=== PATIENT | male | born 1945 | race Caucasian/White ===

== ENCOUNTER 2016-10-21 12:22 | Inpatient (IN) | payer OTHER ==
[~2016-10-21] VITALS: Ht 170.2 cm; Wt 66.5 kg
[~2016-10-21 12:22] MED LIST: ASPI81TA82 PO; BACL20TA PO; GABA300C3 PO; KETO1SOL3 EACH EYE; LEVO88TA2 PO; OMNI1SUS EACH EYE; PROT40TA PO; VITA400D PO; ZOCO40TA PO
[2016-10-21 12:35] VITALS: BP 139/78; PULSE 99; RESP 18; TEMP 98.6; O2SAT 94
[2016-10-21 12:41] VITALS: O2SAT 94
[2016-10-21] MEDS ORDERED: SODIUM CHLORID 0.9% 500 ML INJ 500 ML IV ONE (12:45)
[2016-10-21] MEDS ORDERED: SODIUM CHLORIDE 0.9% FLUSH 10 ML FLUSH IVF PRN (12:45)
[2016-10-21 12:58] LABS: AUTOMATED NEUTROPHIL # 16.3 TH/MM3 (1.8-7.7); BASOPHIL # 0.3 TH/MM3 (0-0.2); BASOPHIL % 0.9 % (0.0-2.0); EOSINOPHIL # 0.2 TH/MM3 (0-0.4); EOSINOPHIL % 0.6 % (0.0-4.0); HEMATOCRIT 32.5 % (39.0-51.0); LYMPH % 6.9 % (9.0-44.0); MEAN CORPUSCULAR HEMOGLOBIN 28.6 PG (27.0-34.0); MEAN CORPUSCULAR HGB CONC 34.1 % (32.0-36.0); MONO % 35.5 % (0.0-8.0); NEUT % 56.1 % (16.0-70.0); PLATELET COUNT 370 TH/MM3 (150-450); RED BLOOD COUNT 3.87 MIL/MM3 (4.50-5.90); RED CELL DISTRIBUTION WIDTH 15.8 % (11.6-17.2)
--- NOTE | 2016-10-21 12:59 | PD ---
HPI Chief Complaint: Chest Pain Time Seen by Provider: 12:25 Travel History International Travel<30 days: No Contact w/Intl Traveler<30days: No Traveled to known affect area: No History of Present Illness HPI This 71-year-old man who presents to the emergency department referred from the [place] for chest pain. Patient started getting left sided pleuritic chest pain about a week or so ago. He had a routine echocardiogram scheduled to follow-up on a heart murmur that he had. He states since that time she's been having this pain. States it comes and goes, is worse with lying flat, worse with coughing or burping, worse with certain arm movements, worse with palpation. He scheduled an appointment for further evaluation at the [facility] today. When he went in the did an EKG which they felt showed some minor EKG changes and is referred to the emergency department. He has no shortness of breath. No diaphoresis. Symptoms are not worse with exertion. He's been eating and drinking normally. He has a history of peptic ulcer disease and hiatal hernia, but states he's been taking his medications has not had any indigestion problems or reflux symptoms. He does not have any history of CAD. He had a stress test part of back surgery 15 years ago, no other cardiac evaluation in the past. No other complaints. History Past Medical History Narrative Medical Peptic ulcer disease, hiatal hernia Borderline diabetes Hypothyroidism Hypertension Low vitamin D Social History Alcohol Use: Yes (OCCASIONALLY) Tobacco Use: No Allergies-Medications (Allergen,Severity, Reaction): Coded Allergies: No Known Allergies (Unverified , 10/21/16) Reported Meds & Prescriptions Reported Meds & Active Scripts Active Protonix (Pantoprazole Sodium) 40 Mg Tabdr 40 Mg PO DAILY 30 Days Reported Aspir-81 (Aspirin) 81 Mg Tab 81 Mg PO DAILY Acular (Ketorolac Tromethamine) 5 Ml Soln 1 Drop EACH EYE QID Prednisolone Acetate 1 % Johanna 1 Drop EACH EYE BID Gabapentin 300 Mg Cap 300 Mg PO TID Lioresal 20 Mg Tab (Baclofen) 20 Mg Tab 20 Mg PO BID Levothyroxine 88 mcg (Levothyroxine Sodium) 88 Mcg Tab 1 Tab PO DAILY Vitamin D (Cholecalciferol) 400 Unit Sal 0 PO DAILY UNKNOWN DOSE Zocor 40 mg (Simvastatin) 40 Mg Tab 1 Tab PO HS Review of Systems Except as stated in HPI: all other systems reviewed are Neg Physical Exam Narrative GENERAL: Well-appearing 71-year-old man, no acute distress. SKIN: Focused skin assessment warm/dry. NECK: Trachea midline. No JVD. CARDIOVASCULAR: Regular rate and rhythm. Soft systolic murmur rating into the apex. RESPIRATORY: No accessory muscle use. Clear to auscultation. Breath sounds equal bilaterally. GASTROINTESTINAL: Abdomen soft, non-tender, nondistended. Hepatic and splenic margins not palpable. MUSCULOSKELETAL: No obvious deformities. No edema. NEUROLOGICAL: Awake and alert. No obvious cranial nerve deficits. Motor grossly within normal limits. Normal speech. Data Data Last Documented VS Vital Signs Date Time Temp Pulse Resp B/P Pulse Ox O2 Delivery O2 Flow Rate FiO2 10/21/16 12:41 94 Room Air 10/21/16 12:37 94 18 10/21/16 12:35 98.6 139/78 Orders Electrocardiogram (10/21/16 12:39) Complete Blood Count With Diff (10/21/16 12:39) Comprehensive Metabolic Panel (10/21/16 12:39) D-Dimer (10/21/16 12:39) Magnesium (Mg) (10/21/16 12:39) Prothrombin Time / Inr (Pt) (10/21/16 12:39) Act Partial Throm Time (Ptt) (10/21/16 12:39) Troponin I (10/21/16 12:39) Lipase (10/21/16 12:39) Ecg Monitoring (10/21/16 12:39) Iv Access Insert/Monitor (10/21/16 12:39) Oximetry (10/21/16 12:39) Oxygen Administration (10/21/16 12:39) Sodium Chloride 0.9% Flush (Ns Flush) (10/21/16 12:45) Sodium Chlorid 0.9% 500 Ml Inj (Ns 500 M (10/21/16 12:45) Chest, Pa & Lat (10/21/16 12:39) Ct Thorax/ Chest W Iv Contrast (10/21/16 ) Ct Abd/Pel W Iv Contrast(Rout) (10/21/16 ) Iohexol 350 Inj (Omnipaque 350 Inj) (10/21/16 14:20) Labs Laboratory Tests Test 10/21/16 12:43 White Blood Count 29.0 TH/MM3 Red Blood Count 3.87 MIL/MM3 Hemoglobin 11.1 GM/DL Hematocrit 32.5 % Mean Corpuscular Volume 84.0 FL Mean Corpuscular Hemoglobin 28.6 PG Mean Corpuscular Hemoglobin 34.1 % Concent Red Cell Distribution Width 15.8 % Platelet Count 370 TH/MM3 Mean Platelet Volume 8.2 FL Neutrophils (%) (Auto) 56.1 % Lymphocytes (%) (Auto) 6.9 % Monocytes (%) (Auto) 35.5 % Eosinophils (%) (Auto) 0.6 % Basophils (%) (Auto) 0.9 % Neutrophils # (Auto) 16.3 TH/MM3 Lymphocytes # (Auto) 2.0 TH/MM3 Monocytes # (Auto) 10.3 TH/MM3 Eosinophils # (Auto) 0.2 TH/MM3 Basophils # (Auto) 0.3 TH/MM3 CBC Comment AUTO DIFF Differential Comment AUTO DIFF CONFIRMED Platelet Estimate NORMAL Platelet Morphology Comment NORMAL Prothrombin Time 12.5 SEC Prothromb Time International 1.1 RATIO Ratio Activated Partial 33.1 SEC Thromboplast Time D-Dimer Quantitative (PE/DVT) 1.09 MG/L FEU Sodium Level 133 MEQ/L Potassium Level 4.4 MEQ/L Chloride Level 98 MEQ/L Carbon Dioxide Level 27.1 MEQ/L Anion Gap 8 MEQ/L Blood Urea Nitrogen 17 MG/DL Creatinine 0.86 MG/DL Estimat Glomerular Filtration 88 ML/MIN Rate Random Glucose 111 MG/DL Calcium Level 8.4 MG/DL Magnesium Level 2.1 MG/DL Total Bilirubin 0.4 MG/DL Aspartate Amino Transf 14 U/L (AST/SGOT) Alanine Aminotransferase 13 U/L (ALT/SGPT) Alkaline Phosphatase 76 U/L Troponin I LESS THAN 0.02 NG/ML Total Protein 8.0 GM/DL Albumin 3.3 GM/DL Lipase 67 U/L [facility] Medical Decision Making Medical Screen Exam Complete: Yes Emergency Medical Condition: Yes Interpretation(s) My review of EKG: Normal sinus rhythm at a rate of 96, leftward axis, possible LVH, no definite evidence of acute ischemia. Compared to previous EKG from September 23, no significant change. LABS: CBC remarkable for white count 29,000, 35% monos CMP is generally unremarkable Troponins negative Lipase is normal Coags unremarkable D-dimer 1.09 Chest x-ray: Moderate size left pleural effusion and associated consolidation of the left lower lobe. Chest CT: Large left pleural effusion and associated subsegmental areas of consolidation the left middle lower lung. Solitary large calcified subcarinal lymph node and multiple nonenlarged bilateral hilar calcified nodes. Without evidence of renal stone or ureteral stone. Several mildly prominent periaortic lymph nodes measuring up to 11 mm. Differential Diagnosis Chest wall pain, CAD, pericarditis, pleurisy, pneumonia, pneumothorax, gastritis /reflux, hiatal hernia, other Narrative Course Medical decision making INITIAL: 71-year-old man presents to the emergency department complaining of chest pain, nonexertional, positional and pleuritic, as well as reproducible suggestive of muscular skeletal etiology or less likely pericarditis. Gastritis or hiatal hernia symptoms are also possible however patient feels like his stomach really has been bothering him at all since she's been on his GI medications. ACS always possible, but less likely. We'll check initial labs , EKG, chest x-ray. I reviewed [facility], and the EKG changes that they appear to be referring to seem to be related to artifact in the baseline in V3. I don't see any significant change from his previous EKGs on the one that we performed today. FINAL: 71-year-old man left-sided chest pain. He has large left pleural effusion and some consolidation but no symptoms to suggest pneumonia. Nonsmoker. Will given. Treatment for pneumonia, admitted for drainage and further evaluation. Diagnosis Primary Impression: Pleural effusion Additional Impression: Pneumonia Admitting Information Admitting Physician Requests: Admit Vernon Frazier MD Oct 21, 2016 12:58
[2016-10-21 13:01] LABS: HEMO FLAGS AUTO DIFF
[2016-10-21 13:08] LABS: ANION GAP 8 MEQ/L (5-15); AST (GOT) 14 U/L (15-37); BICARBONATE 27.1 MEQ/L (21.0-32.0); BLOOD UREA NITROGEN 17 MG/DL (7-18); CHLORIDE 98 MEQ/L (98-107); GLOMERULAR FILTRATION RATE 88 ML/MIN (>89); MAGNESIUM 2.1 MG/DL (1.5-2.5); POTASSIUM 4.4 MEQ/L (3.5-5.1); SODIUM (NA) 133 MEQ/L (136-145)
[2016-10-21 13:09] LABS: APTT (PATIENT) 33.1 SEC (24.3-30.1); INTERNATIONAL NORMALIZED RATIO 1.1 RATIO; PROTHROMBIN TIME - PATIENT 12.5 SEC (9.8-11.6)
[2016-10-21 13:10] LABS: ALT (GPT) 13 U/L (12-78)
[2016-10-21 13:13] LABS: ALKALINE PHOSPHATASE 76 U/L (45-117); TOTAL BILIRUBIN ADULT 0.4 MG/DL (0.2-1.0)
[2016-10-21 13:35] LABS: PLATELET ESTIMATE SMEAR NORMAL (NORMAL); PLATELET MORPHOLOGY NORMAL (NORMAL); SCAN/DIFF AUTO DIFF CONFIRMED
--- NOTE | 2016-10-21 13:45 | RADRPT ---
EXAM DATE/TIME: 10/21/2016 13:00 [facility] COMPARISON: No previous studies available for comparison. INDICATIONS : Chest pain. MEDICAL HISTORY : None. SURGICAL HISTORY : None. ENCOUNTER: Initial ACUITY: 1 day PAIN SCORE: 10/10 LOCATION: Left chest FINDINGS: There is moderately dense opacity obscuring the left hemidiaphragm and lateral left heart border with meniscal interface suggesting a moderate-sized pleural effusion. There is also some consolidation i n the left lower lobe. The heart is normal size. The right lung is clear. Right hemidiaphragm is w ell delineated. [place] screws are present in the proximal right humerus. CONCLUSION: Moderate-sized left pleural effusion and associated consolidation left lower lobe. Jc Suarez MD on October 21, 2016 at 13:43 Board Certified Radiologist. This report was verified electronically.
[2016-10-21] MEDS ORDERED: IOHEXOL 350 MG/ML 10 ML VIAL (for RAD DIAG) IV ONE (14:20)
--- NOTE | 2016-10-21 16:00 | RADRPT ---
EXAM DATE/TIME: 10/21/2016 14:16 [facility] COMPARISON: No previous studies available for comparison. INDICATIONS : Diffuse abdomen pain for two weeks. IV CONTRAST: 70 cc Omnipaque 350 (iohexol) IV ; Cumulative dose for multiple exams. ORAL CONTRAST: No oral contrast ingested. RADIATION DOSE: 11.88 CTDIvol (mGy) ; Combined studies - Thorax/Abdomen/Pelvis MEDICAL HISTORY : Hypertension. Cardiovascular disease Diabetes mellitus type 2. SURGICAL HISTORY : None. ENCOUNTER: Initial ACUITY: 2 weeks PAIN SCALE: 3/10 LOCATION: Bilateral upper quadrant TECHNIQUE: Volumetric scanning of the abdomen and pelvis was performed. Using automated exposure control and ad justment of the mA and/or kV according to patient size, radiation dose was kept as low as reasonably achievable to obtain optimal diagnostic quality images. FINDINGS: Left pleural effusion and lower lobe consolidation. Please see CT thorax report. LIVER: Homogeneous density without lesion. There is no dilation of the biliary tree. Cholecystectomy. SPLEEN: Normal size without lesion. PANCREAS: Within normal limits. KIDNEYS: Normal in size and shape. There is no mass, stone or hydronephrosis. The left ureter is mildly dila marcelino, but no calcified stones seen. ADRENAL GLANDS: Within normal limits. VASCULAR: There is no aortic aneurysm. BOWEL/MESENTERY: No dilated loops of small or large bowel. ABDOMINAL WALL: Within normal limits. RETROPERITONEUM: There several periaortic lymph nodes which are mildly prominent and measure up to 11 mm in size. The largest is seen on image #53. BLADDER: Mildly distended. Smooth margins. No calcifications within the lumen. REPRODUCTIVE: Within normal limits. INGUINAL: Several bilateral nonenlarged inguinal lymph nodes. MUSCULOSKELETAL: Within normal limits for patient age. CONCLUSION: 1. Left pleural effusion and lower lobe consolidation. 2. Mild dilation of the left ureter without evidence of renal stone or ureteral stone. 3. Several mildly prominent para-aortic lymph nodes measuring up to 11 mm. Jc Suarez MD on October 21, 2016 at 15:54 Board Certified Radiologist. This report was verified electronically.
--- NOTE | 2016-10-21 16:04 | RADRPT ---
EXAM DATE/TIME: 10/21/2016 14:16 [facility] COMPARISON: No previous studies available for comparison. INDICATIONS : Chest pains for one week. IV CONTRAST: 70 cc Omnipaque 350 (iohexol) IV ; Cumulative dose for multiple exams. RADIATION DOSE: CTDIvol (mGy) ; Combined studies - Thorax/Abdomen/Pelvis MEDICAL HISTORY : Hypertension. Cardiovascular disease Diabetes mellitus type 2. SURGICAL HISTORY : None. ENCOUNTER: Initial ACUITY: 2 weeks PAIN SCALE: 4/10 LOCATION: Bilateral chest TECHNIQUE: Volumetric scanning of the chest was performed. Using automated exposure control and adjustment of t he mA and/or kV according to patient size, radiation dose was kept as low as reasonably achievable to obtain optimal diagnostic quality images. FINDINGS: LUNGS: The right lung is clear. There is subsegmental consolidation in the left lower lung adjacent to the pleural effusions. PLEURA: Large left pleural effusion extends from apex to base and measures up to 5 cm in thickness. No pleur al effusion on the right. MEDIASTINUM: There is a oval densely calcified right subcarinal lymph node which measures 3.0 x 1.5 cm. Nonenlarg ed bilateral hilar nodes are also present. AXILLAE: Within normal limits. No lymphadenopathy. SKELETAL: Within normal limits for patient age. MISCELLANEOUS: The visualized upper abdominal organs demonstrate no acute abnormality. CONCLUSION: 1. Large left pleural effusion and associated subsegmental areas of consolidation left mid and lower lung. 2. Solitary large calcified subcarinal lymph node and multiple nonenlarged bilateral hilar calcified nodes. Jc Suarez MD on October 21, 2016 at 15:58 Board Certified Radiologist. This report was verified electronically.
[2016-10-21 16:30] VITALS: BP 150/70; PULSE 99; RESP 18; O2SAT 94
[2016-10-21] MEDS ORDERED: AZITHROMYCIN 250 MG TAB PO ONE (16:30)
[2016-10-21] MEDS ORDERED: cefTRIAXone INJ 1,000 MG in SODIUM CHLORIDE 0.9% INJ 100 ML IV ONE (16:30)
[2016-10-21] MEDS ORDERED: ACETAMINOPHEN 325 MG TAB PO PRN (17:00)
[2016-10-21] MEDS ORDERED: MORPHINE SULFATE 4 MG/ML INJ IV PUSH PRN (17:00)
[2016-10-21] MEDS ORDERED: SODIUM CHLORIDE 0.9% FLUSH 10 ML FLUSH IV FLUSH PRN (17:00)
[2016-10-21] MEDS ORDERED: ONDANSETRON HCL 4 MG/2 ML VIAL IVP PRN (17:00)
[2016-10-21] MEDS ORDERED: BISACODYL 10 MG SUPP RECTAL PRN (17:00)
[2016-10-21] MEDS ORDERED: TEMAZEPAM 15 MG CAP PO PRN (17:00)
[2016-10-21] MEDS ORDERED: LACTULOSE SYRUP 20 GM/30 ML CUP PO PRN (17:00)
[2016-10-21] MEDS ORDERED: SENNOSIDES 8.6 MG TAB PO PRN (17:00)
[2016-10-21] MEDS ORDERED: MAGNESIUM HYDROXIDE SUSP 30 ML CUP PO PRN (17:00)
--- NOTE | 2016-10-21 17:26 | HHI.HP ---
[facility] Service [facility] Primary Care Physician [facility] Admission Diagnosis pneumonia, effusion Diagnoses: Chief Complaint: Chest pain Travel History International Travel<30 Days: No Contact w/Intl Traveler <30 Da: No Traveled to Known Affected Are: No Sepsis Criteria SIRS Criteria (2 or more): Heart rate over 90, WBC > 09670, < 4000 or > 10% bands Sepsis Criteria (SIRS+source): Infect source susp/known Criteria Outcome: Meets sepsis criteria History of Present Illness Written by Darryn Mandujano, acting as scribe for Dr. Schmitt on 10/21/16 at 17:15. This note was transcribed by ej QUINTERO. I, Dr. Tashia Schmitt personally performed the history, physical exam, and medical decision making; and confirmed the accuracy of the information in the transcribed note. Authenticated by Dr. Tashia Schmitt on 10/21/16 at 17:15. 71-year-old male with a past medical history of HLD, hypothyroidism, GERD, chronic back pain who was sent by the [facility] for chest pain. The patient states that he's been having intermittent left-sided chest pain for the past week. He states the pain is worse when he takes a deep breath or lies flat. The pain has been alleviated by sitting and nitroglycerin. He denies any radiation of the pain. He states the pain is intermediate and lasts for about 20 or 30 minutes at a time. His chest has been tender to touch. He does report orthopnea, but denies any shortness of breath. He reports occasional palpitations. He states that he always has night sweats. He states that normally he has a clear yellow cough in the morning, denies any blood in it. He denies any past history of heart disease, tobacco use, or cancer. He denies any nausea, vomiting, constipation, diarrhea, weakness, weight loss or appetite loss. Review of Systems Except as stated in HPI: all other systems reviewed are Neg Past Family Social History Past Medical History Hyperlipidemia GERD Hypothyroidism Chronic back pain Past Surgical History Shoulder surgery Lower back surgery Reported Medications Protonix (Pantoprazole Sodium) 40 Mg Tabdr 40 Mg PO DAILY 30 Days Aspir-81 (Aspirin) 81 Mg Tab 81 Mg PO DAILY Acular (Ketorolac Tromethamine) 5 Ml Soln 1 Drop EACH EYE QID Prednisolone Acetate 1 % Johanna 1 Drop EACH EYE BID Gabapentin 300 Mg Cap 300 Mg PO TID Lioresal 20 Mg Tab (Baclofen) 20 Mg Tab 20 Mg PO BID Levothyroxine 88 mcg (Levothyroxine Sodium) 88 Mcg Tab 1 Tab PO DAILY Vitamin D (Cholecalciferol) 400 Unit Sal 0 PO DAILY UNKNOWN DOSE Zocor 40 mg (Simvastatin) 40 Mg Tab 1 Tab PO HS Allergies: Coded Allergies: No Known Allergies (Unverified , 10/21/16) Active Ordered Medications Current Medications Medications (Trade) Dose Ordered Sig/Coleen Route Start Time Stop Time Status Last Admin (NS Flush) 2 ml UNSCH PRN IVF 10/21/16 12:45 (NS Flush) 2 ml UNSCH PRN IV FLUSH 10/21/16 17:00 (NS Flush) 2 ml BID IV FLUSH 10/21/16 21:00 (Tylenol) 650 mg Q4H PRN PO 10/21/16 17:00 (Zofran Inj) 4 mg Q6H PRN IVP 10/21/16 17:00 (Restoril) 15 mg HS PRN PO 10/21/16 17:00 (Heparin Inj) 5,000 units Q12H SQ 10/21/16 17:00 UNV (Gale-Colace) 1 tab BID PO 10/21/16 21:00 (Milk Of Magnesia Liq) 30 ml Q12H PRN PO 10/21/16 17:00 (Senokot) 17.2 mg Q12H PRN PO 10/21/16 17:00 (Dulcolax Supp) 10 mg DAILY PRN RECTAL 10/21/16 17:00 Lactulose 30 ml 30 ml DAILY PRN PO 10/21/16 17:00 Ceftriaxone Sodium 1000 mg/ Sodium Chloride 100 ml @ 200 mls/hr Q24H IV 10/21/16 17:00 UNV (Zithromax Inj/ NS 250 ml Inj) 250 ml @ 250 mls/hr Q24H IV 10/21/16 17:00 UNV (Paradise 5-325 Mg) 1 tab Q4H PRN PO 10/21/16 17:00 UNV (Morphine Inj) 2 mg Q4HR PRN IV PUSH 10/21/16 17:00 UNV Family History Father at age 50 of a heart attack Mother lived to 92 Brother at 72 of blood cancer Social History Never a smoker Occasional alcohol use Denies any drug use Physical Exam Vital Signs Vital Signs Date Time Temp Pulse Resp B/P Pulse Ox O2 Delivery O2 Flow Rate FiO2 10/21/16 12:41 94 Room Air 10/21/16 12:41 94 Room Air 10/21/16 12:37 94 18 93 Room Air 10/21/16 12:35 98.6 99 18 139/78 94 Physical Exam GENERAL: Well-developed well-nourished. In no acute distress. SKIN: Warm and dry. No lesions noted. HEENT: Normocephalic. Pupils equal and round. Mucous membranes pink and moist. CARDIOVASCULAR: Regular rate and rhythm. No murmur appreciated. RESPIRATORY: No accessory muscle use. Decreased breath sounds in the left lung base. GASTROINTESTINAL: Abdomen soft, non-tender, nondistended. Bowel sounds x4. MUSCULOSKELETAL: No obvious deformities. No clubbing or cyanosis. Trace edema. Left axillary/chest wall TTP. NEUROLOGICAL: Awake and alert. No focal neurological deficits. Moves upper and lower extremities spontaneously. Normal speech. PSYCHIATRIC: Appropriate mood and affect; insight and judgment normal. Laboratory Laboratory Tests Test 10/21/16 12:43 White Blood Count 29.0 Red Blood Count 3.87 Hemoglobin 11.1 Hematocrit 32.5 Mean Corpuscular Volume 84.0 Mean Corpuscular Hemoglobin 28.6 Mean Corpuscular Hemoglobin 34.1 Concent Red Cell Distribution Width 15.8 Platelet Count 370 Mean Platelet Volume 8.2 Neutrophils (%) (Auto) 56.1 Lymphocytes (%) (Auto) 6.9 Monocytes (%) (Auto) 35.5 Eosinophils (%) (Auto) 0.6 Basophils (%) (Auto) 0.9 Neutrophils # (Auto) 16.3 Lymphocytes # (Auto) 2.0 Monocytes # (Auto) 10.3 Eosinophils # (Auto) 0.2 Basophils # (Auto) 0.3 CBC Comment AUTO DIFF Differential Comment AUTO DIFF CONFIRMED Platelet Estimate NORMAL Platelet Morphology Comment NORMAL Prothrombin Time 12.5 Prothromb Time International 1.1 Ratio Activated Partial 33.1 Thromboplast Time D-Dimer Quantitative (PE/DVT) 1.09 Sodium Level 133 Potassium Level 4.4 Chloride Level 98 Carbon Dioxide Level 27.1 Anion Gap 8 Blood Urea Nitrogen 17 Creatinine 0.86 Estimat Glomerular Filtration 88 Rate Random Glucose 111 Calcium Level 8.4 Magnesium Level 2.1 Total Bilirubin 0.4 Aspartate Amino Transf 14 (AST/SGOT) Alanine Aminotransferase 13 (ALT/SGPT) Alkaline Phosphatase 76 Troponin I LESS THAN 0.02 Total Protein 8.0 Albumin 3.3 Lipase 67 Result Diagram: 10/21/16 1243 10/21/16 1243 Imaging Last Impressions Chest X-Ray 10/21/16 1239 Signed Impressions: Service Date/Time: October 13:00 - CONCLUSION: Moderate-sized left pleural effusion and associated consolidation left lower lobe. Jc Suarez MD Chest CT 10/21/16 0000 Signed Impressions: Service Date/Time: October 14:16 - CONCLUSION: 1. Large left pleural effusion and associated subsegmental areas of consolidation left mid and lower lung. 2. Solitary large calcified subcarinal lymph node and multiple nonenlarged bilateral hilar calcified nodes. Jc Suarez MD Abdomen/Pelvis CT 10/21/16 0000 Signed Impressions: Service Date/Time: October 14:16 - CONCLUSION: 1. Left pleural effusion and lower lobe consolidation. 2. Mild dilation of the left ureter without evidence of renal stone or ureteral stone. 3. Several mildly prominent para-aortic lymph nodes measuring up to 11 mm. Jc Suarez MD Assessment and Plan Assessment and Plan 71-year-old male with a past medical history of HLD, hypothyroidism, GERD, chronic back pain who [facility] Atypical chest pain: Suspect secondary to pleural effusion and possible infection Reviewed: Troponin 0.02. D-dimer 1.09. Chest CT with large left pleural effusion and no PE. -Trend cardiac enzymes -Telemetry monitoring -Treat underlying pulmonary process as below -Echocardiogram Pneumonia with sepsis: Reviewed: Chest CT with subsegmental areas of consolidation left mid and lower lung. WBC 29. Tachycardia. -Continue antibiotics with IV ceftriaxone and azithromycin -Check blood cultures Pleural effusion: Chest and abdominal CT show lymphadenopathy; will definitely need to rule out a malignant etiology. -Consult pulmonology, will likely need thoracentesis with cytology -Ultrasound chest for marking Other chronic medical conditions include hypothyroidism, GERD, chronic back pain , hyperlipidemia: Stable at this time. Reconcile and home medications as indicated. DVT prophylaxis: Heparin Discussed Condition With Patient, ED staff Darryn Mandujano Oct 21, 2016 17:26 Tashia Schmitt MD Oct 21, 2016 20:19
[2016-10-21] MEDS ORDERED: POLY99.0 EACH EYE (18:01)
[2016-10-21] MEDS ORDERED: GABA400C5 PO (18:01)
[2016-10-21] MEDS ORDERED: MICO2CRE (18:02)
[2016-10-21] MEDS ORDERED: KETO0.5S2 EACH EYE (18:02)
[2016-10-21] MEDS ORDERED: LEVO125T4 PO (18:02)
[2016-10-21] MEDS ORDERED: SIMV20TA PO (18:02)
[2016-10-21] MEDS ORDERED: [UNRECOGNIZED DRUG - CODE] (18:02)
[2016-10-21] MEDS ORDERED: OMEP40CA2 PO (18:02)
[2016-10-21] MEDS ORDERED: OMEP20TA PO (18:02)
[2016-10-21 18:34] VITALS: BP 158/68; PULSE 96; RESP 18; TEMP 99.4; O2SAT 93
[2016-10-21] MEDS: HEPARIN SODIUM - SQ 10,000 UNITS/ML VIAL SQ SCH (18:40)
[2016-10-21 18:48] LABS: CREATINE KINASE 22 U/L (39-308)
[2016-10-21 20:07] VITALS: BP 160/74; PULSE 115; RESP 16; TEMP 99.3; O2SAT 92
[2016-10-21 20:20] VITALS: PULSE 115
[2016-10-21] MEDS ORDERED: ARTIFICIAL TEARS OPTH SOLN 15 ML BTL EACH EYE PRN (20:30)
[2016-10-21] MEDS ORDERED: LEVOTHYROXINE SODIUM 125 MCG TAB PO PRN (20:30)
[2016-10-21] MEDS: SODIUM CHLORIDE 0.9% FLUSH 10 ML FLUSH IV FLUSH SCH (20:46)
[2016-10-21] MEDS: DOCUSATE SODIUM 50 MG/SENNA 8.6 MG TAB PO SCH (20:46)
[2016-10-21] MEDS: PRAVASTATIN SOD 40 MG TAB PO SCH (21:17)
[2016-10-21] MEDS: GABAPENTIN 400 MG CAP PO SCH (21:17)
--- NOTE | 2016-10-21 23:01 | RADRPT ---
EXAM DATE/TIME: 10/21/2016 22:04 [facility] COMPARISON: No previous studies available for comparison. INDICATIONS : Pleural effusion. MEDICAL HISTORY : Hypercholesterolemia. Gastroesophageal reflux disease. Hypothyroidism. Hypertension. Diabetes. Blood transfusion. SURGICAL HISTORY : Cholecystectomy. Hernia repair. Lumbar fusion. Right shoulder surgery. ENCOUNTER: Initial ACUITY: 1 day PAIN SCORE: 3/10 LOCATION: Left chest MEASUREMENTS: SKIN TO PARIETAL PLEURA: 1.9 cm SKIN TO MAX SAFE DEPTH: 4.1 cm ESTIMATED FLUID VOLUME: 775 cc FLUID COMPOSITION: simple FINDINGS: Pleural effusion as above. A etelvina was placed on the skin surface superficial to the pleural fluid col lection. CONCLUSION: Moderate left pleural effusion marked for bedside thoracentesis Andrea Evans MD on October 21, 2016 at 22:59 Board Certified Radiologist. This report was verified electronically.
[2016-10-22] VITALS (10 sets, daily range): BP systolic 124–150; BP diastolic 63–72; PULSE 93–108; RESP 16–20; TEMP 98.9–99.5; O2SAT 91–96
[2016-10-22 01:49] LABS: CREATINE KINASE 16 U/L (39-308)
[2016-10-22] MEDS: PANTOPRAZOLE SOD 40 MG DELAYED RELEASE TAB PO SCH (06:40)
[2016-10-22] MEDS: HEPARIN SODIUM - SQ 10,000 UNITS/ML VIAL SQ SCH (06:40)
[2016-10-22 08:50] LABS: ANION GAP 8 MEQ/L (5-15); AST (GOT) 12 U/L (15-37); BICARBONATE 26.2 MEQ/L (21.0-32.0); BLOOD UREA NITROGEN 15 MG/DL (7-18); CHLORIDE 98 MEQ/L (98-107); GLOMERULAR FILTRATION RATE 93 ML/MIN (>89); POTASSIUM 3.9 MEQ/L (3.5-5.1); SODIUM (NA) 132 MEQ/L (136-145)
[2016-10-22 08:52] LABS: ALT (GPT) 12 U/L (12-78)
[2016-10-22 08:54] LABS: ALKALINE PHOSPHATASE 64 U/L (45-117); TOTAL BILIRUBIN ADULT 0.6 MG/DL (0.2-1.0)
[2016-10-22] MEDS: DOCUSATE SODIUM 50 MG/SENNA 8.6 MG TAB PO SCH ×2 (09:00→20:13)
[2016-10-22] MEDS: GABAPENTIN 400 MG CAP PO SCH ×3 (09:00→17:29)
[2016-10-22] MEDS ORDERED: PANTOPRAZOLE SOD 20 MG DELAYED RELEASE TAB PO SCH (09:00)
[2016-10-22] MEDS ORDERED: GABAPENTIN 400 MG CAP PO SCH (09:00)
[2016-10-22] MEDS: SODIUM CHLORIDE 0.9% FLUSH 10 ML FLUSH IV FLUSH SCH ×2 (09:02→20:14)
[2016-10-22] MEDS: metroNIDAZOLE 500 MG INJ 100 ML IV SCH ×2 (09:30→17:29)
--- NOTE | 2016-10-22 09:44 | HHI.PR ---
Subjective Remarks Some sob. Says has chest paoin only with deep inspiration. No fever or chills. No n/v/d/c. Eating well. Family at bedside. Objective Vitals Vital Signs Date Time Temp Pulse Resp B/P Pulse Ox O2 Delivery O2 Flow Rate FiO2 10/22/16 08:00 99.2 96 20 142/68 91 10/22/16 04:00 99.4 100 20 133/65 93 10/22/16 00:00 99.5 108 20 124/63 93 10/21/16 20:51 Room Air 10/21/16 20:20 115 10/21/16 20:07 99.3 115 16 160/74 92 10/21/16 18:34 99.4 96 18 158/68 93 10/21/16 16:30 99 18 150/70 94 Room Air 10/21/16 12:41 94 Room Air 10/21/16 12:41 94 Room Air 10/21/16 12:37 94 18 93 Room Air 10/21/16 12:35 98.6 99 18 139/78 94 I/O 10/21/16 10/21/16 10/21/16 10/22/16 10/22/16 10/22/16 07:00 15:00 23:00 07:00 15:00 23:00 Intake Total 220 ml Balance 220 ml Intake Oral 220 ml # Voids 1 # Bowel Movements 0 Result Diagram: 10/21/16 1243 10/22/16 0754 Imaging Last Impressions Chest X-Ray 10/21/16 1239 Signed Impressions: Service Date/Time: October 13:00 - CONCLUSION: Moderate-sized left pleural effusion and associated consolidation left lower lobe. Jc Suarez MD Chest Ultrasound 10/21/16 0000 Signed Impressions: Service Date/Time: October 22:04 - CONCLUSION: Moderate left pleural effusion marked for bedside thoracentesis Andrea Evans MD Chest CT 10/21/16 0000 Signed Impressions: Service Date/Time: October 14:16 - CONCLUSION: 1. Large left pleural effusion and associated subsegmental areas of consolidation left mid and lower lung. 2. Solitary large calcified subcarinal lymph node and multiple nonenlarged bilateral hilar calcified nodes. Jc Suarez MD Abdomen/Pelvis CT 10/21/16 0000 Signed Impressions: Service Date/Time: October 14:16 - CONCLUSION: 1. Left pleural effusion and lower lobe consolidation. 2. Mild dilation of the left ureter without evidence of renal stone or ureteral stone. 3. Several mildly prominent para-aortic lymph nodes measuring up to 11 mm. Jc Suarez MD Objective Remarks GENERAL: Well-developed well-nourished. In no acute distress. SKIN: Warm and dry. No lesions noted. HEENT: Normocephalic. Pupils equal and round. Mucous membranes pink and moist. CARDIOVASCULAR: Regular rate and rhythm. No murmur appreciated. RESPIRATORY: No accessory muscle use. Decreased breath sounds in the left lung base. GASTROINTESTINAL: Abdomen soft, non-tender, nondistended. Bowel sounds x4. MUSCULOSKELETAL: No obvious deformities. No clubbing or cyanosis. Trace edema. Left axillary/chest wall TTP. NEUROLOGICAL: Awake and alert. No focal neurological deficits. Moves upper and lower extremities spontaneously. Normal speech. PSYCHIATRIC: Appropriate mood and affect; insight and judgment normal. A/P Assessment and Plan 71-year-old male with a past medical history of HLD, hypothyroidism, GERD, chronic back pain [facility] Atypical chest pain: Suspect secondary to pleural effusion and possible infection r/o malignancy Reviewed: Troponin 0.02. D-dimer 1.09. Chest CT with large left pleural effusion and no PE. -Trend cardiac enzymes -Telemetry monitoring -Treat underlying pulmonary process as below -Echocardiogram Pneumonia with sepsis: Reviewed: Chest CT with subsegmental areas of consolidation left mid and lower lung. WBC 29. Tachycardia. -Continue antibiotics with IV ceftriaxone and azithromycin -Check blood cultures Pleural effusion. Chest and abdominal CT reviewed findings discussed with ED physician show lymphadenopathy; will definitely need to rule out a malignant etiology. -Consult pulmonology, will likely need thoracentesis with cytology -Ultrasound chest for marking reviewed reveals moderate pleural effusion. Seen by Dr Hanna gallegos. Plan for Thoracentesis diagnostic and therapeutic. Other chronic medical conditions include hypothyroidism, GERD, chronic back pain , hyperlipidemia: Stable at this time. Reconcile and home medications as indicated. DVT prophylaxis: Heparin Discussed Condition With Patient, nurse , family - KeshiaYoanTashia MD Oct 22, 2016 09:44
--- NOTE | 2016-10-22 09:44 | MB ---
cc: Ismael GOODSON M.D. DATE OF CONSULTATION: 10/22/2016 REASON FOR CONSULTATION: Mr. Padgett is a 71-year-old white male with no significant prior pulmonary history, he presented with about a week history of less left-sided chest discomfort. He was seen at the [facility] yesterday and referred to the emergency room and chest x-ray revealed a left pleural effusion. He had a CT scan then, which revealed a large left pleural effusion with some subsegmental consolidation as well. He had a large calcified lymph node. He had a low grade temperature of 99-100, his white count was elevated to 2900. He has a daily morning cough that he has had for years that really has not changed. He has had no purulent sputum or fever, although he does say he has intermittent night sweats. He has had no hemoptysis. No prior history of thromboembolic disease and he has had no significant recent travel. No swelling in the legs. He does have a history of significant reflux disease actually had surgery in 2007. I believe it was in [place] where hiatal hernia was corrected it sounds like he may have had a sleeve procedure. Since that time he had no symptoms until about 2 years ago when he presented with abdominal pain. He had a peptic ulcer. He has been on Protonix since then and denies that he is having reflux symptoms at the present time. PAST MEDICAL HISTORY: Past medical history reflux as noted hypothyroidism lumbosacral degenerative arthritis with pain. He has had a previous shoulder surgery in the lower back surgery antireflux procedure noted above. No prior significant cardiovascular history. MEDICATIONS: 1. Regular medications Protonix 2. 81 mg aspirin. 3. Gabapentin 4. . 5. Thyroid FAMILY HISTORY: Brother of a blood cancer, he has a sister who has had breast cancer. She is a twin. Two daughters and a son in good health. Father of heart disease in his 50s. Mother natural causes at 92. SOCIAL HISTORY living with his . She does smoke. She smoked all of their adult life for 46 years. He drinks two beers a week. He is a retired senior maintenance machinist and truck spotter. Not aware of previous asbestos exposure. REVIEW OF SYSTEMS Review of systems other than that noted above he has had no nausea, vomiting, no abdominal pain. When this initially came on though he did have some left shoulder discomfort. No change in bowel habits. No swelling in his legs. No sudden shortness of breath in fact he has no shortness of breath. PHYSICAL EXAMINATION VITAL SIGNS: 99 degrees, pulse 100, respirations 18, blood pressure is 130/60 and his Pulse oximetry on room air is 93% HEAD, EYES, EARS, NOSE, AND THROAT: sclerae anicteric. Pharynx is clear. NECK: Neck veins are flat. No adenopathy in the neck, supraclavicular region. LUNGS: The breath sounds are diminished at the left base with dullness to percussion and bronchial breath sounds above that area. The right lung is clear. No wheezes. HEART: Regular rhythm. Soft systolic murmur. No audible S3. ABDOMEN: No abdominal discomfort or rebound. No left upper quadrant pain. EXTREMITIES: No peripheral edema, calf tenderness or cyanosis. LABORATORY FINDINGS: Coag profile is normal. Sodium is 133. Liver functions are not elevated. Albumin is 3.3, BUN and creatinine are normal. DISCUSSION Mr. Padgett presents with discomfort in the left chest for roughly 1 week now a large left pleural effusion. Very few symptoms of pneumonia but a marked elevation in his white count. The other thing concern would be the surgery that he had in the past and then the peptic ulcer disease with what he is sort of describes as an esophageal tear, although he did not need surgery at that time and whether or not any of this is broken down and cause the problem should also be in the differential. He has been started on Rocephin and Zithromax. I am going to add Flagyl. Have radiology drain this fluid and analyze it including cultures and cytology. Follow up CT scan after the drainage procedure to get a better look at the left upper quadrant and left lower lobe area. Further diagnostic and/or therapeutic intervention will depend on his ongoing clinical course. R. MD MARVIN Cavazos/dev /8:46 AM /9:14 AM
[2016-10-22] MEDS: KETOROLAC TROMETHAMINE 0.5% OPHT SOLN 5 ML BTL EACH EYE SCH ×3 (13:00→20:17)
--- NOTE | 2016-10-22 16:06 | RADRPT ---
EXAM DATE/TIME: 10/22/2016 15:31 [facility] COMPARISON: No previous studies available for comparison. INDICATIONS : Post left thoracentesis MEDICAL HISTORY : Hypercholesterolemia. Gastroesophageal reflux disease. Hypothyroidism. Hypertension. Diabetes. Blood transfusion SURGICAL HISTORY : Cholecystectomy. Hernia repair. Lumbar fusion. Right shoulder surgery ENCOUNTER: Initial ACUITY: 1 day PAIN SCORE: 3/10 LOCATION: Left chest FINDINGS: Consolidative changes persist on the left without pneumothorax. The right lung is clear. Heart and pulmonary vascularity are normal. CONCLUSION: Consolidative changes left base otherwise negative. Andrea Ortega MD FACR on October 22, 2016 at 16:02 Board Certified Radiologist. This report was verified electronically.
--- NOTE | 2016-10-22 16:20 | RADRPT ---
EXAM DATE/TIME: 10/22/2016 14:54 [facility] COMPARISON: No previous studies available for comparison. INDICATIONS : Left pleural effusion. MEDICAL HISTORY : Hypothyroidism. Hypercholesterolemia. HTN. GERD. Borderline diabetes. SURGICAL HISTORY : Cholecystectomy Sliding esophageal hernia. Fusion lower back. Right shoulder. Blood transfusions. ENCOUNTER: Initial ACUITY: 1 day PAIN SCORE: 2/10 LOCATION: Left chest FLUID: Total volume of 300 cc of clear, yellow fluid was removed. Fluid was sent to lab for ordered studies. TECHNIQUE: 1. Ultrasound guidance for thoracentesis. 2. Thoracentesis. The risks, benefits, and alternatives to ultrasound guided thoracentesis were explained to the patien t in lay simple terms, including the risk of bleeding and infection. Written and verbal informed con sent was obtained. Appropriate area for thoracentesis was marked under ultrasound guidance with the patient in the uprig ht position. Overlying skin was prepped and draped in the usual sterile fashion and with local anest hetic, a dermatotomy was made with an 11 blade scalpel. A 6 Romanian thoracentesis catheter was placed in the pleural space and fluid was removed. Catheter was then removed and a sterile dressing applie d. There were no immediate complications. The patient tolerated the procedure well and the left the ultrasound suite in stable condition. Chest radiograph is to be obtained. CONCLUSION: Uncomplicated ultrasound guided thoracentesis. Bart Moraes MD on October 22, 2016 at 16:18 Board Certified Radiologist. This report was verified electronically.
[2016-10-22 17:06] LABS: PLEURAL FLUID LYMPHS 11 %
[2016-10-22] MEDS: ACETAMINOPHEN/HYDROcodone 325 MG/5 MG TAB PO PRN ×2 (17:24→22:21)
[2016-10-22] MEDS: AZITHROMYCIN INJ 500 MG in SODIUM CHLOR 0.9% 250 ML INJ 250 ML IV SCH (17:28)
[2016-10-22] MEDS: cefTRIAXone INJ 1,000 MG in SODIUM CHLORIDE 0.9% INJ 100 ML IV SCH (17:28)
--- NOTE | 2016-10-22 17:36 | EKG ---
Date Performed: 10/21/2016 Time Performed: 22:30:55 PTAGE: 71 years EKG: SINUS TACHYCARDIA MINIMAL VOLTAGE CRITERIA FOR LVH, CONSIDER NORMAL VARIANT NONSPECIFIC T-W AVE ABNORMALITY ABNORMAL RHYTHM ECG PREVIOUS TRACING : 10/21/2016 17.45 Compared to prior tracing no significant change DOCTOR: Moriah Cardenas Interpretating Date/Time 10/22/2016 17:35:00
--- NOTE | 2016-10-22 17:44 | RADRPT ---
EXAM DATE/TIME: 10/22/2016 16:21 [facility] COMPARISON: US GUIDED THORACENTESIS LEFT, October 22, 2016, 14:54. INDICATIONS : Evaluate Pleural Effusion and post Thorancentesis. RADIATION DOSE: 4.50 CTDIvol (mGy) MEDICAL HISTORY : Hypertension. Diabetes mellitus type 2. Hernia SURGICAL HISTORY : Cholecystectomy. Hemorrhoidectomy. ENCOUNTER: Initial ACUITY: 1 day PAIN SCALE: 2/10 LOCATION: chest TECHNIQUE: Volumetric scanning of the chest was performed. Using automated exposure control and adjustment of t he mA and/or kV according to patient size, radiation dose was kept as low as reasonably achievable to obtain optimal diagnostic quality images. FINDINGS: LUNGS: Minimal linear scarring versus atelectasis in the right lung base. 4 mm calcified granuloma in the ri ght lung base. Slightly more prominent airspace consolidation in the left lower lobe adjacent to pleu ral effusion. PLEURAE: Slightly more prominent loculated appearing large left pleural effusion following small volume thorac entesis earlier today. Ultrasound images from study performed yesterday demonstrate relatively simple anechoic pleural fluid. The fluid however measures intermediate in density on CT exam. Previously co ntrast enhanced CT exam did not demonstrate any significant pleural-based masses. MEDIASTINUM: Redemonstration of bulky subcarinal calcified lymph nodes and small calcified right hilar nodes. AXILLAE: Subcentimeter essentially reactive lymph nodes. MUSCULOSKELETAL: Postsurgical features in the right humerus. No abnormal lytic or blastic bony lesions. MISCELLANEOUS: The visualized upper abdominal organs demonstrate no acute abnormality. CONCLUSION: 1. Slight interval progression of airspace consolidation in the left lower lobe with interval minimal progression of loculated appearing intermediate density left-sided pleural effusion. Given relativel y low volume thoracentesis earlier today, patient may benefit from chest tube placement and TPA fibri nolysis. Juan Carlos Gibson MD on October 22, 2016 at 16:27 Board Certified Radiologist. This report was verified electronically.
--- NOTE | 2016-10-22 17:47 | EKG ---
Date Performed: 10/21/2016 Time Performed: 17:45:04 PTAGE: 71 years EKG: Sinus rhythm MODERATE VOLTAGE CRITERIA FOR LVH, CONSIDER NORMAL VARIANT BORDERLINE ECG PREVIOUS TRACING : 10/21/2016 12.30 Compared to prior tracing no significant change DOCTOR: Moriah Cardenas Interpretating Date/Time 10/22/2016 17:46:23
--- NOTE | 2016-10-22 17:56 | EKG ---
Date Performed: 10/21/2016 Time Performed: 12:30:14 PTAGE: 71 years EKG: Sinus rhythm WITH OCCASIONAL SUPRAVENTRICULAR PREMATURE COMPLEXES MODERATE VOLTAGE CRITERIA FOR LVH, CONSIDER NOR MAL VARIANT NONSPECIFIC T-WAVE ABNORMALITY BORDERLINE ECG PREVIOUS TRACING : 06/21/2014 00.06 Compared to prior tracing no significant change DOCTOR: Moriah Cardenas Interpretating Date/Time 10/22/2016 17:54:27
[2016-10-22] MEDS: PRAVASTATIN SOD 40 MG TAB PO SCH (20:13)
[2016-10-23] VITALS (7 sets, daily range): BP systolic 122–140; BP diastolic 60–69; PULSE 83–106; RESP 20; TEMP 98.5–99.7; O2SAT 92–95
[2016-10-23] MEDS: metroNIDAZOLE 500 MG INJ 100 ML IV SCH ×3 (02:32→16:27)
[2016-10-23] MEDS: PANTOPRAZOLE SOD 40 MG DELAYED RELEASE TAB PO SCH (06:37)
[2016-10-23] MEDS: KETOROLAC TROMETHAMINE 0.5% OPHT SOLN 5 ML BTL EACH EYE SCH ×4 (09:00→20:59)
[2016-10-23] MEDS: GABAPENTIN 400 MG CAP PO SCH ×3 (09:11→17:37)
[2016-10-23] MEDS: DOCUSATE SODIUM 50 MG/SENNA 8.6 MG TAB PO SCH ×2 (09:11→20:58)
[2016-10-23] MEDS: SODIUM CHLORIDE 0.9% FLUSH 10 ML FLUSH IV FLUSH SCH ×2 (09:17→20:58)
[2016-10-23 09:34] LABS: BASOPHIL # 0.2 TH/MM3 (0-0.2); EOSINOPHIL # 0.2 TH/MM3 (0-0.4); EOSINOPHIL % 0.9 % (0.0-4.0); HEMATOCRIT 32.7 % (39.0-51.0); MEAN CELL VOLUME 85.1 FL (80.0-100.0); MEAN CORPUSCULAR HEMOGLOBIN 27.7 PG (27.0-34.0); MEAN CORPUSCULAR HGB CONC 32.5 % (32.0-36.0); MONO % 39.6 % (0.0-8.0); NEUT % 49.5 % (16.0-70.0); PLATELET COUNT 367 TH/MM3 (150-450); RED BLOOD COUNT 3.84 MIL/MM3 (4.50-5.90); RED CELL DISTRIBUTION WIDTH 16.1 % (11.6-17.2); WHITE BLOOD COUNT 22.2 TH/MM3 (4.0-11.0)
[2016-10-23 09:57] LABS: HEMO FLAGS AUTO DIFF
[2016-10-23 11:04] LABS: BANDS 3 % (0-6); BASOPHILS 1 % (0-2); EOSINOPHILS 2 % (0-4); MYELOCYTES 1 % (0-0); NEUTROPHIL # MANUAL DIFF 12.7 TH/MM3 (1.8-7.7); PLATELET ESTIMATE SMEAR NORMAL (NORMAL); PLATELET MORPHOLOGY NORMAL (NORMAL); POLYS (SEG NEUTROPHILS) 53 % (16-70); TOXIC GRANULATION 1+ (NORMAL); WBC DIFF SAMPLE 100
[2016-10-23 11:05] LABS: SCAN/DIFF FINAL DIFF MANUAL
--- NOTE | 2016-10-23 11:06 | HHI.PR ---
Subjective Remarks The patient is status she still has significant pain in his left lower lateral chest especially with breathing. Patient denies any fever or chills. Less breath. Says he is not coughing much. Production. No night sweats. Objective Vitals Vital Signs Date Time Temp Pulse Resp B/P Pulse Ox O2 Delivery O2 Flow Rate FiO2 10/23/16 08:00 99.2 90 20 134/65 92 10/23/16 08:00 83 10/23/16 08:00 98 Room Air 10/23/16 04:00 98.8 88 20 122/62 93 10/23/16 00:00 99.3 95 20 123/60 92 10/22/16 20:26 Room Air 10/22/16 20:00 99.4 10/22/16 20:00 106 10/22/16 20:00 99.4 101 20 92 10/22/16 16:05 95 16 132/67 96 10/22/16 16:00 99.1 96 20 149/70 95 10/22/16 15:50 94 16 130/67 94 10/22/16 15:35 96 18 135/65 94 10/22/16 15:29 99.1 93 16 150/72 93 10/22/16 12:00 98.9 94 20 141/64 94 I/O 10/22/16 10/22/16 10/22/16 10/23/16 10/23/16 10/23/16 07:00 15:00 23:00 07:00 15:00 23:00 Intake Total 240 ml 280 ml 220 ml Output Total 350 ml 400 ml Balance 240 ml -70 ml -180 ml Intake Oral 240 ml 280 ml 220 ml Output Urine Total 350 ml 400 ml # Voids 6 # Bowel Movements 1 0 0 Result Diagram: 10/23/16 0713 10/22/16 0754 Imaging Last Impressions Thoracentesis Ultrasound 10/22/16 0000 Signed Impressions: Service Date/Time: Saturday, October 22, 2016 14:54 - CONCLUSION: Uncomplicated ultrasound guided thoracentesis. Bart Moraes MD Chest X-Ray 10/22/16 0000 Signed Impressions: Service Date/Time: Saturday, October 22, 2016 15:31 - CONCLUSION: Consolidative changes left base otherwise negative. Andrea Ortega MD FACR Chest CT 10/22/16 0000 Signed Impressions: Service Date/Time: Saturday, October 22, 2016 16:21 - CONCLUSION: 1. Slight interval progression of airspace consolidation in the left lower lobe with interval minimal progression of loculated appearing intermediate density left-sided pleural effusion. Given relatively low volume thoracentesis earlier today, patient may benefit from chest tube placement and TPA fibrinolysis. Juan Carlos Gibson MD Chest Ultrasound 10/21/16 0000 Signed Impressions: Service Date/Time: October 22:04 - CONCLUSION: Moderate left pleural effusion marked for bedside thoracentesis Andrea Evans MD Abdomen/Pelvis CT 10/21/16 0000 Signed Impressions: Service Date/Time: October 14:16 - CONCLUSION: 1. Left pleural effusion and lower lobe consolidation. 2. Mild dilation of the left ureter without evidence of renal stone or ureteral stone. 3. Several mildly prominent para-aortic lymph nodes measuring up to 11 mm. Jc Suarez MD Objective Remarks GENERAL: Well-developed well-nourished. In no acute distress. SKIN: Warm and dry. No lesions noted. HEENT: Normocephalic. Pupils equal and round. Mucous membranes pink and moist. CARDIOVASCULAR: Regular rate and rhythm. No murmur appreciated. RESPIRATORY: No accessory muscle use. Decreased breath sounds in the left lung base. GASTROINTESTINAL: Abdomen soft, non-tender, nondistended. Bowel sounds x4. MUSCULOSKELETAL: No obvious deformities. No clubbing or cyanosis. Trace edema. Left axillary/chest wall TTP. NEUROLOGICAL: Awake and alert. No focal neurological deficits. Moves upper and lower extremities spontaneously. Normal speech. PSYCHIATRIC: Appropriate mood and affect; insight and judgment normal. A/P Assessment and Plan 71-year-old male with a past medical history of HLD, hypothyroidism, GERD, chronic back pain who [facility] Atypical chest pain: Suspect secondary to pleural effusion and possible infection appearing loculated, also r/o malignancy Reviewed: Troponin 0.02. D-dimer 1.09. Chest CT with large left pleural effusion and no PE. -Trend cardiac enzymes neg -Telemetry monitoring -Treat underlying pulmonary process as below -Echocardiogram pending Repeat CT chest after thoracentesis reviewed Minimal interval progression of airspace consolidation in the left lower lobe with interval minimal progression of loculated appearing intermediate density left-sided pleural effusion. Patient may benefit from chest tube placement and TPA fibrinolysis. Pneumonia with sepsis: Reviewed: Chest CT with subsegmental areas of consolidation left mid and lower lung. WBC 29 on admission, improving.. Tachycardia. Sepsis resoling with abx -Continue antibiotics with IV ceftriaxone and azithromycin -Check blood cultures Pleural effusion, moderate. Chest and abdominal CT reviewed findings discussed with ED physician show lymphadenopathy; will definitely need to rule out a malignant etiology. -Consult pulmonology. -Had Ultrasound chest for marking, reviewed reveals moderate pleural effusion. Seen by Dr Ferreira pultruong. S/P Thoracentesis diagnostic and therapeutic. Repeat CT after thoracentesis with persistent loculated left lobe effusion, may need chest tube with TPA. Pulm following. Other chronic medical conditions include hypothyroidism, GERD, chronic back pain , hyperlipidemia: Stable at this time. Reconcile and home medications as indicated. DVT prophylaxis: Heparin Discussed Condition With Patient, nurse , family - Tashia Schmitt MD Oct 23, 2016 11:06
[2016-10-23] MEDS: ACETAMINOPHEN/HYDROcodone 325 MG/5 MG TAB PO PRN (12:39)
[2016-10-23] MEDS: cefTRIAXone INJ 1,000 MG in SODIUM CHLORIDE 0.9% INJ 100 ML IV SCH (17:38)
[2016-10-23] MEDS: AZITHROMYCIN INJ 500 MG in SODIUM CHLOR 0.9% 250 ML INJ 250 ML IV SCH (18:25)
[2016-10-23] MEDS: PRAVASTATIN SOD 40 MG TAB PO SCH (20:57)
[2016-10-24] VITALS (8 sets, daily range): BP systolic 132–168; BP diastolic 66–76; PULSE 78–101; RESP 18–20; TEMP 97.6–99; O2SAT 93–95
[2016-10-24] MEDS: metroNIDAZOLE 500 MG INJ 100 ML IV SCH ×3 (00:39→16:43)
[2016-10-24] MEDS: PANTOPRAZOLE SOD 40 MG DELAYED RELEASE TAB PO SCH (06:23)
[2016-10-24] MEDS: DOCUSATE SODIUM 50 MG/SENNA 8.6 MG TAB PO SCH ×2 (09:00→19:39)
[2016-10-24] MEDS: KETOROLAC TROMETHAMINE 0.5% OPHT SOLN 5 ML BTL EACH EYE SCH ×4 (09:00→19:39)
[2016-10-24] MEDS: GABAPENTIN 400 MG CAP PO SCH ×3 (09:16→17:55)
[2016-10-24] MEDS: SODIUM CHLORIDE 0.9% FLUSH 10 ML FLUSH IV FLUSH SCH ×2 (09:17→19:39)
--- NOTE | 2016-10-24 16:41 | HHI.PR ---
Subjective Remarks Resting in bed no fever or chills no chest pain Plan for CT with TPA for a loculated pleural effusion Objective Vitals Vital Signs Date Time Temp Pulse Resp B/P Pulse Ox O2 Delivery O2 Flow Rate FiO2 10/24/16 12:00 98.4 95 20 151/71 94 10/24/16 08:00 98.8 92 20 141/71 94 10/24/16 04:00 98.3 95 20 132/71 94 10/24/16 00:00 Room Air 10/24/16 00:00 97.6 97 20 168/76 95 10/23/16 20:02 106 10/23/16 20:00 Room Air 10/23/16 20:00 99.7 105 20 131/69 95 I/O 10/23/16 10/23/16 10/23/16 10/24/16 10/24/16 10/24/16 07:00 15:00 23:00 07:00 15:00 23:00 Intake Total 220 ml 720 ml 240 ml 240 ml Output Total 400 ml 1 ml Balance -180 ml 720 ml 239 ml 240 ml Intake Oral 220 ml 720 ml 240 ml 240 ml Output Urine Total 400 ml 1 ml # Voids 7 2 # Bowel Movements 0 3 Result Diagram: 10/23/16 0713 10/22/16 0754 Objective Remarks - - GENERAL: This is a well-nourished, well-developed patient, in no apparent distress. SKIN: No rashes, warm and dry HEAD: Atraumatic. Normocephalic. EYES: Pupils equal round and reactive. Extraocular motions intact. No scleral icterus. ENT: Nose without bleeding, or drainage, Airway patent. NECK: Trachea midline. Supple CARDIOVASCULAR: Regular rate and 2/6 systolic murmur RESPIRATORY: Decrease breath sounds on the left base GASTROINTESTINAL: Abdomen soft, non-tender, nondistended. Positive bowel sounds MUSCULOSKELETAL: Extremities without clubbing, cyanosis, or edema. Pedal pulses appreciated NEUROLOGICAL: Awake and alert. Moves all extremity. Normal speech.no focal neurological deficit A/P Assessment and Plan 10/24: Patient in bed resting fairly comfortably, Mild chest discomfort no fever or chills, Blood pressure still not optimal will add Norvasc 12.5 mg daily Imaging revealed loculated pleural effusion plan for CT with TPA A/P: 71-year-old male with a past medical history of HLD, hypothyroidism, GERD, chronic back pain who [facility] Atypical chest pain: Suspect secondary to pleural effusion and possible infection r/o malignancy Reviewed: Troponin 0.02. D-dimer 1.09. Chest CT with large left pleural effusion and no PE. -Trend cardiac enzymes -Telemetry monitoring -Treat underlying pulmonary process as below -Echocardiogram Pneumonia with sepsis: Reviewed: Chest CT with subsegmental areas of consolidation left mid and lower lung. . Tachycardia. -Continue antibiotics with IV ceftriaxone and azithromycin Follow blood cultures Pleural effusion. Chest and abdominal CT reviewed findings discussed with ED physician show lymphadenopathy; will definitely need to rule out a malignant etiology. -Consult pulmonology, will likely need thoracentesis with cytology -Ultrasound chest for marking reviewed reveals moderate pleural effusion. Seen by Dr Hanna gallegos. Plan for Thoracentesis diagnostic and therapeutic. Other chronic medical conditions include hypothyroidism, GERD, chronic back pain , hyperlipidemia: Stable at this time. Reconcile and home medications as indicated. DVT prophylaxis: Heparin Artem Gomez MD Oct 24, 2016 16:41
[2016-10-24] MEDS ORDERED: PILL SPLITTER OTHER PRN (17:00)
[2016-10-24] MEDS: cefTRIAXone INJ 1,000 MG in SODIUM CHLORIDE 0.9% INJ 100 ML IV SCH (17:55)
[2016-10-24] MEDS: amLODIPine BESYLATE 5 MG TAB PO SCH (17:55)
[2016-10-24] MEDS: AZITHROMYCIN INJ 500 MG in SODIUM CHLOR 0.9% 250 ML INJ 250 ML IV SCH (18:00)
[2016-10-24] MEDS: ACETAMINOPHEN/HYDROcodone 325 MG/5 MG TAB PO PRN (19:38)
[2016-10-24] MEDS: PRAVASTATIN SOD 40 MG TAB PO SCH (19:38)
[2016-10-24] MEDS ORDERED: MORPHINE SULFATE 4 MG/ML INJ IV PUSH PRN (20:15)
[2016-10-24 21:30] LABS: ANION GAP 10 MEQ/L (5-15); BICARBONATE 23.4 MEQ/L (21.0-32.0); BLOOD UREA NITROGEN 11 MG/DL (7-18); CHLORIDE 100 MEQ/L (98-107); GLOMERULAR FILTRATION RATE 91 ML/MIN (>89); MAGNESIUM 1.9 MG/DL (1.5-2.5); POTASSIUM 3.8 MEQ/L (3.5-5.1); SODIUM (NA) 133 MEQ/L (136-145)
--- NOTE | 2016-10-24 21:42 | RADRPT ---
EXAM DATE/TIME: 10/24/2016 20:37 [facility] COMPARISON: CHEST EXPIRATION ONLY, October 22, 2016, 15:31. CHEST SINGLE AP, May 14, 2014, 11:01. INDICATIONS : Chest pain, short of breath MEDICAL HISTORY : Hypercholesterolemia. Gastroesophageal reflux disease. Hypothyroidism. Hypertension. Diabetes. Blood transfusion SURGICAL HISTORY : Cholecystectomy. Hernia repair. Lumbar fusion. Right shoulder surgery ENCOUNTER: Subsequent ACUITY: 4 - 6 days PAIN SCORE: 3/10 LOCATION: Bilateral chest FINDINGS: There is a large left pleural effusion with meniscal interface in the left mid chest causing obscurat ion of the entire left hemidiaphragm and left heart border. The size of this lesion is similar to pr ior on 10/22/16. The right lung is clear. The heart is normal size. CONCLUSION: Large left pleural effusion. Jc Suarez MD on October 24, 2016 at 21:39 Board Certified Radiologist. This report was verified electronically.
[2016-10-24] MEDS ORDERED: POTASSIUM CHLORIDE 20 MEQ CONTROLLED RELEASE TAB PO ONE (22:15)
[2016-10-24] MEDS ORDERED: MAGNESIUM SULFATE 1 GM PREMIX 100 ML IV ONE (22:15)
[2016-10-25] VITALS (14 sets, daily range): BP systolic 112–142; BP diastolic 60–71; PULSE 81–101; RESP 16–20; TEMP 97.9–99.2; O2SAT 93–97
[2016-10-25] MEDS: metroNIDAZOLE 500 MG INJ 100 ML IV SCH ×3 (00:08→17:02)
[2016-10-25 01:49] LABS: HEMATOCRIT 30.4 % (39.0-51.0); MEAN CORPUSCULAR HEMOGLOBIN 27.7 PG (27.0-34.0); PLATELET COUNT 392 TH/MM3 (150-450); RED BLOOD COUNT 3.61 MIL/MM3 (4.50-5.90); RED CELL DISTRIBUTION WIDTH 15.8 % (11.6-17.2); WHITE BLOOD COUNT 17.5 TH/MM3 (4.0-11.0)
[2016-10-25 01:54] LABS: HEMO FLAGS AUTO DIFF
[2016-10-25 02:27] LABS: ANION GAP 6 MEQ/L (5-15); BICARBONATE 28.8 MEQ/L (21.0-32.0); BLOOD UREA NITROGEN 11 MG/DL (7-18); CHLORIDE 101 MEQ/L (98-107); GLOMERULAR FILTRATION RATE 101 ML/MIN (>89); SODIUM (NA) 136 MEQ/L (136-145)
[2016-10-25 03:31] LABS: BASOPHILS 1 % (0-2); EOSINOPHILS 1 % (0-4); MYELOCYTES 1 % (0-0); NEUTROPHIL # MANUAL DIFF 7.9 TH/MM3 (1.8-7.7); POLYS (SEG NEUTROPHILS) 44 % (16-70); SCAN/DIFF FINAL DIFF MANUAL; WBC DIFF SAMPLE 100
[2016-10-25 03:38] LABS: PLATELET ESTIMATE SMEAR NORMAL (NORMAL); PLATELET MORPHOLOGY NORMAL (NORMAL)
[2016-10-25 03:42] LABS: ACANTHOCYTES OCC (NORMAL); HELMET CELLS 1+ (NORMAL)
[2016-10-25] MEDS: PANTOPRAZOLE SOD 40 MG DELAYED RELEASE TAB PO SCH (05:32)
[2016-10-25] MEDS: DOCUSATE SODIUM 50 MG/SENNA 8.6 MG TAB PO SCH ×2 (09:00→21:00)
[2016-10-25] MEDS: SODIUM CHLORIDE 0.9% FLUSH 10 ML FLUSH IV FLUSH SCH ×2 (09:00→23:06)
[2016-10-25] MEDS: KETOROLAC TROMETHAMINE 0.5% OPHT SOLN 5 ML BTL EACH EYE SCH ×4 (09:00→21:00)
[2016-10-25] MEDS: GABAPENTIN 400 MG CAP PO SCH ×3 (09:35→18:33)
[2016-10-25] MEDS: amLODIPine BESYLATE 5 MG TAB PO SCH (09:35)
[2016-10-25] MEDS ORDERED: LIDOCAINE HCL 1% 20 ML VIAL ONE (10:46)
[2016-10-25] MEDS ORDERED: fentaNYL CITRATE 250 MCG/5 ML AMP ONE (10:55)
[2016-10-25] MEDS ORDERED: MIDAZOLAM HCL 5 MG/5 ML VIAL ONE (10:55)
--- NOTE | 2016-10-25 11:08 | HHI.PR ---
Subjective Remarks patient laying comfortably in bed he denies any notice of weight loss or hemoptysis or night sweat Objective Vitals Vital Signs Date Time Temp Pulse Resp B/P Pulse Ox O2 Delivery O2 Flow Rate FiO2 10/25/16 08:00 99.2 91 20 142/70 93 10/25/16 04:00 Room Air 10/25/16 04:00 98.7 87 18 140/67 94 10/25/16 00:00 99.0 81 16 132/64 93 10/24/16 20:00 Room Air 10/24/16 20:00 98.6 101 18 138/67 93 10/24/16 19:44 100 10/24/16 19:43 99 10/24/16 16:00 99.0 93 20 139/66 93 10/24/16 12:00 98.4 95 20 151/71 94 I/O 10/24/16 10/24/16 10/24/16 10/25/16 10/25/16 10/25/16 07:00 15:00 23:00 07:00 15:00 23:00 Intake Total 240 ml 960 ml 240 ml 440 ml Output Total 300 ml Balance 240 ml 960 ml -60 ml 440 ml Intake Oral 240 ml 960 ml 240 ml 240 ml IV Total 200 ml Output Urine Total 300 ml # Voids 2 7 2 # Bowel Movements 2 0 3 Result Diagram: 10/25/1611510/25/16115 Objective Remarks - - GENERAL: This is a well-nourished, well-developed patient, in no apparent distress. SKIN: No rashes, warm and dry HEAD: Atraumatic. Normocephalic. EYES: Pupils equal round and reactive. Extraocular motions intact. No scleral icterus. ENT: Nose without bleeding, or drainage, Airway patent. NECK: Trachea midline. Supple CARDIOVASCULAR: Regular rate and 2/6 systolic murmur RESPIRATORY: Decrease breath sounds on the left base GASTROINTESTINAL: Abdomen soft, non-tender, nondistended. Positive bowel sounds MUSCULOSKELETAL: Extremities without clubbing, cyanosis, or edema. Pedal pulses appreciated NEUROLOGICAL: Awake and alert. Moves all extremity. Normal speech.no focal neurological deficit A/P Assessment and Plan A/P: 71-year-old male with a past medical history of HLD, hypothyroidism, GERD, chronic back pain who [facility] Atypical chest pain: Suspect secondary to pleural effusion and possible infection r/o malignancy Reviewed: Troponin 0.02. D-dimer 1.09. Chest CT with large left pleural effusion and no PE. loculated pleural effusion, status post drainage with increased WBC and RBC, LDH and protein in the effusion is pending WBC 1790, RBC 2196 Pneumonia with sepsis: Reviewed: Chest CT with subsegmental areas of consolidation left mid and lower lung. . Tachycardia. -Continue antibiotics with IV ceftriaxone and azithromycin Follow blood cultures Pleural effusion. Chest and abdominal CT reviewed findings discussed with ED physician show lymphadenopathy; will definitely need to rule out a malignant etiology. -Consult pulmonology, will likely need thoracentesis with cytology -Ultrasound chest for marking reviewed reveals moderate pleural effusion. Seen by Dr Hanna gallegos. Plan for Thoracentesis diagnostic and therapeutic. Other chronic medical conditions include hypothyroidism, GERD, chronic back pain , hyperlipidemia: Stable at this time. Reconcile and home medications as indicated. DVT prophylaxis: Heparin Artem Gomez MD Oct 25, 2016 11:08
--- NOTE | 2016-10-25 11:25 | EKG ---
Date Performed: 10/25/2016 Time Performed: 00:16:00 PTAGE: 71 years EKG: Sinus rhythm Since previous tracing, no significant change noted Normal ECG PREVIOUS TRACING : 10/24/2016 20.31.46 DOCTOR: Alhaji Nichole Interpretating Date/Time 10/25/2016 11:24:53
--- NOTE | 2016-10-25 11:25 | EKG ---
Date Performed: 10/24/2016 Time Performed: 20:31:46 PTAGE: 71 years EKG: Sinus rhythm MODERATE VOLTAGE CRITERIA FOR LVH, CONSIDER NORMAL VARIANT NONSPECIFIC T-WAVE ABNORMALITY Since prev ious tracing, no significant change noted BORDERLINE ECG PREVIOUS TRACING : 10/21/2016 22.30 DOCTOR: Alhaji Nichole Interpretating Date/Time 10/25/2016 11:25:20
--- NOTE | 2016-10-25 11:25 | EKG ---
Date Performed: 10/25/2016 Time Performed: 07:13:14 PTAGE: 71 years EKG: Sinus rhythm MODERATE VOLTAGE CRITERIA FOR LVH, CONSIDER NORMAL VARIANT Since previous tracing, no significant ch hilaria noted BORDERLINE ECG PREVIOUS TRACING : 10/25/2016 00.16.00 DOCTOR: Alhaji Nichole Interpretating Date/Time 10/25/2016 11:24:03
--- NOTE | 2016-10-25 12:43 | RADRPT ---
EXAM DATE/TIME: 10/25/2016 12:30 [facility] COMPARISON: CHEST EXPIRATION ONLY, October 22, 2016, 15:31. INDICATIONS : Post left chest tube placement. MEDICAL HISTORY : Hypercholesterolemia. Gastroesophageal reflux disease. Hypothyroidism. Hypertension. Diabetes. Bl ood transfusion. SURGICAL HISTORY : Cholecystectomy. Fusion, lumbar. Hernia repair. Right shoulder repair. Thoracenteis, left. ENCOUNTER: Initial ACUITY: 2 days PAIN SCORE: 4/10 LOCATION: Left chest FINDINGS: Left chest tube is in good position. There is better aeration all the left. Right lung is clear. T here is no pneumothorax. CONCLUSION: Chest tube on the left with better aeration. Andrea Ortega MD FACR on October 25, 2016 at 12:41 Board Certified Radiologist. This report was verified electronically.
--- NOTE | 2016-10-25 12:54 | RADRPT ---
EXAM DATE/TIME: 10/25/2016 11:53 INDICATIONS : Left sided pleural effusion. SEDATION TIME: 20 minutes MEDICATION(S): 1.) 1.5 mg midazolam (Versed) IV 2.) 100 mcg fentanyl (Sublimaze) IV DEVICE(S): 1.) 10 Fr Elizabeth FLUID: Total volume of50 cc of clear, yellow fluid was remoted. Fluid was sent for laboratory ordered studies. MEDICAL HISTORY : Hypothyroidism. Hypertension. SURGICAL HISTORY : sliding esophageal hernia surgery, thoracentesis, right shoulder surgery ENCOUNTER: Initial ACUITY: 1 day PAIN SCORE: 0/10 LOCATION: Bilateral chest PROCEDURE: 1.) Conscious sedation with continuous EKG and oximetry monitoring. 2.) EKG and oximetry remained stable throughout the procedure. PROCEDURE : 1. CT guided chest tube placement. 2. Conscious sedation with continuous EKG and oximetry monitoring. The risks, benefits and alternatives to the procedure were explained and verbal and written consent w as obtained. The site was prepped in sterile fashion. Full sterile technique was used, including ca p, mask, sterile gloves and gown and a large sterile sheet. Hand hygiene and 2% chlorhexidine and/or betadine/alcohol prep was utilized per protocol for cutaneous antisepsis. The skin and subcutaneous tissues were infiltrated with local anesthetic solution. Using automated exposure control and adjus tment of the mA and/or kV according to patient size, radiation dose was kept as low as reasonably ach ievable to obtain optimal diagnostic quality images. Using CT guidance the 10-Moroccan chest tube was placed in the left pleural space. 20 cc of clear yell ow fluid were removed and sent to lab for Gram stain culture. Catheter was placed the 40s and is Ple ur-evac suction. Conscious sedation was performed with the prescribed dosages and duration as above. The patient linda ated the procedure well and there were no complications. EKG and oximetry remained stable throughout the procedure. The patient was sent to post anesthesia recovery in stable condition. CONCLUSION: Successful CT-guided 10-Moroccan left chest tube 40 cm Pleur-evac suction. The lung should reexpand c ompletely and the tube should be able to be removed tomorrow. Andrea Ortega MD FACR on October 25, 2016 at 12:50 Board Certified Radiologist. This report was verified electronically.
[2016-10-25] MEDS: ACETAMINOPHEN/HYDROcodone 325 MG/5 MG TAB PO PRN ×2 (13:57→23:03)
[2016-10-25] MEDS: cefTRIAXone INJ 1,000 MG in SODIUM CHLORIDE 0.9% INJ 100 ML IV SCH (18:11)
[2016-10-25] MEDS: AZITHROMYCIN INJ 500 MG in SODIUM CHLOR 0.9% 250 ML INJ 250 ML IV SCH (18:33)
[2016-10-25] MEDS: PRAVASTATIN SOD 40 MG TAB PO SCH (23:03)
[2016-10-26] VITALS (7 sets, daily range): BP systolic 119–146; BP diastolic 58–67; PULSE 78–90; RESP 15–16; TEMP 98.3–99.4; O2SAT 94–96
[2016-10-26] MEDS: metroNIDAZOLE 500 MG INJ 100 ML IV SCH ×3 (02:59→15:06)
[2016-10-26] MEDS: PANTOPRAZOLE SOD 40 MG DELAYED RELEASE TAB PO SCH (06:05)
--- NOTE | 2016-10-26 07:14 | RADRPT ---
EXAM DATE/TIME: 10/26/2016 06:22 [facility] COMPARISON: CHEST EXPIRATION ONLY, October 25, 2016, 12:30. INDICATIONS : Short of breath, evaluate pneumothorax and chest tube on left side, chest tube on suction MEDICAL HISTORY : Gastroesophageal reflux disease. Diabetes mellitus type II. Hypertension. SURGICAL HISTORY : Cholecystectomy. lumbar fusion, right shoulder repair, thoracentesis left, hernia repair ENCOUNTER: Subsequent ACUITY: 3 days PAIN SCORE: 4/10 LOCATION: Left chest FINDINGS: Portable upright expiratory view of the chest demonstrates a normal-sized cardiac silhouette. There i s a moderate size left pleural-parenchymal opacity. No pneumothorax is visualized. Left chest tube ov erlies the inferior hemithorax peripherally. CONCLUSION: Stable chest x-ray. Chest tube is present and there is no pneumothorax. Moderate-sized left basilar p leural-parenchymal opacity remains present. Andrea Eugene MD on October 26, 2016 at 7:11 Board Certified Radiologist. This report was verified electronically.
--- NOTE | 2016-10-26 08:46 | HHI.PR ---
Subjective Remarks The patient said he felt the best he's felt in a long time. He denied chest pain except with moving around. He denied any shortness of breath. He has been tolerating a diet. He has been having bowel movements. He has not been ambulating much since having the chest tube placed. Discussed with nursing. Objective Vitals Vital Signs Date Time Temp Pulse Resp B/P Pulse Ox O2 Delivery O2 Flow Rate FiO2 10/26/16 05:17 98.5 86 16 131/66 95 10/25/16 23:52 98.8 90 16 129/71 93 10/25/16 21:13 98.5 96 18 140/65 94 10/25/16 20:00 101 10/25/16 20:00 Room Air 10/25/16 16:00 98.6 84 20 112/60 95 10/25/16 14:50 90 16 128/65 95 10/25/16 14:20 97.9 88 16 125/60 95 10/25/16 13:50 98.2 86 16 131/63 97 10/25/16 13:25 83 20 131/67 93 10/25/16 12:55 88 20 131/71 94 10/25/16 12:40 98.7 81 20 127/64 93 10/25/16 09:00 86 I/O 10/25/16 10/25/16 10/25/16 10/26/16 10/26/16 10/26/16 07:00 15:00 23:00 07:00 15:00 23:00 Intake Total 440 ml 340 ml 480 ml 260 ml Output Total 445 ml 660 ml 592 ml Balance 440 ml -105 ml -180 ml -332 ml Intake Oral 240 ml 240 ml 480 ml 60 ml IV Total 200 ml 100 ml 200 ml Output Urine Total 375 ml 650 ml 550 ml Chest Tube Drainage Total 70 ml 10 ml 42 ml # Voids 2 4 # Bowel Movements 3 2 1 1 Result Diagram: 10/25/16 0116 10/25/16 0116 Imaging Last Impressions Chest X-Ray 10/26/16 0000 Signed Impressions: Service Date/Time: Wednesday, October 26, 2016 06:22 - CONCLUSION: Stable chest x-ray. Chest tube is present and there is no pneumothorax. Moderate-sized left basilar pleural-parenchymal opacity remains present. Andrea Eugene MD Chest Tube Insertion 10/25/16 1038 Signed Impressions: Service Date/Time: Tuesday, October 25, 2016 11:53 - CONCLUSION: Successful CT-guided 10-[place]jib[place]ian left chest tube 40 cm Pleur-evac suction. The lung should reexpand completely and the tube should be able to be removed tomorrow. Andrea Ortega MD FACR Thoracentesis Ultrasound 10/22/16 0000 Signed Impressions: Service Date/Time: Saturday, October 22, 2016 14:54 - CONCLUSION: Uncomplicated ultrasound guided thoracentesis. Bart Moraes MD Chest CT 10/22/16 0000 Signed Impressions: Service Date/Time: Saturday, October 22, 2016 16:21 - CONCLUSION: 1. Slight interval progression of airspace consolidation in the left lower lobe with interval minimal progression of loculated appearing intermediate density left-sided pleural effusion. Given relatively low volume thoracentesis earlier today, patient may benefit from chest tube placement and TPA fibrinolysis. Juan Carlos Gibson MD Chest Ultrasound 10/21/16 0000 Signed Impressions: Service Date/Time: October 22:04 - CONCLUSION: Moderate left pleural effusion marked for bedside thoracentesis Andrea Evans MD Abdomen/Pelvis CT 10/21/16 0000 Signed Impressions: Service Date/Time: October 14:16 - CONCLUSION: 1. Left pleural effusion and lower lobe consolidation. 2. Mild dilation of the left ureter without evidence of renal stone or ureteral stone. 3. Several mildly prominent para-aortic lymph nodes measuring up to 11 mm. Jc Suarez MD Objective Remarks GENERAL: Well-developed well-nourished. In no acute distress. SKIN: Warm and dry. No lesions noted. HEENT: Normocephalic. Pupils equal and round. Mucous membranes pink and moist. CARDIOVASCULAR: Regular rate and rhythm. Grade 2 systolic murmur appreciated. RESPIRATORY: No accessory muscle use. Decreased breath sounds and crackles in the left lung base. GASTROINTESTINAL: Abdomen soft, non-tender, nondistended. Bowel sounds x4. MUSCULOSKELETAL: No obvious deformities. No clubbing or cyanosis. No edema. Chest tube in place on the left chest wall. NEUROLOGICAL: Awake and alert. No focal neurological deficits. Moves upper and lower extremities spontaneously. Normal speech. PSYCHIATRIC: Appropriate mood and affect; insight and judgment normal. Procedures Chest tube placement Thoracentesis Medications and IVs Current Medications Medications (Trade) Dose Ordered Sig/Coleen Route Start Time Stop Time Status Last Admin (NS Flush) 2 ml UNSCH PRN IV FLUSH 10/21/16 17:00 (NS Flush) 2 ml BID IV FLUSH 10/21/16 21:00 10/25/16 23:06 (Tylenol) 650 mg Q4H PRN PO 10/21/16 17:00 (Zofran Inj) 4 mg Q6H PRN IVP 10/21/16 17:00 (Restoril) 15 mg HS PRN PO 10/21/16 17:00 (Heparin Inj) 5,000 units Q12H SQ 10/21/16 18:00 Hold 10/22/16 06:40 (Gale-Colace) 1 tab BID PO 10/21/16 21:00 10/23/16 09:11 (Milk Of Magnesia Liq) 30 ml Q12H PRN PO 10/21/16 17:00 (Senokot) 17.2 mg Q12H PRN PO 10/21/16 17:00 (Dulcolax Supp) 10 mg DAILY PRN RECTAL 10/21/16 17:00 Lactulose 30 ml 30 ml DAILY PRN PO 10/21/16 17:00 Ceftriaxone Sodium 1000 mg/ Sodium Chloride 100 ml @ 200 mls/hr Q24H IV 10/22/16 17:00 10/25/16 18:11 (Zithromax Inj/ NS 250 ml Inj) 250 ml @ 250 mls/hr Q24H IV 10/22/16 18:00 10/25/16 18:33 ([place] 5-325 Mg) 1 tab Q4H PRN PO 10/21/16 17:00 10/25/16 23:03 (Morphine Inj) 2 mg Q4H PRN IV PUSH 10/21/16 17:00 (Acular 0.5% Opth Soln) 1 drop QID EACH EYE 10/21/16 21:00 10/25/16 18:00 (Synthroid) 125 mcg DAILY@06 PRN PO 10/21/16 20:30 (Tears Naturale Opth Soln) 2 drop Q2HR PRN EACH EYE 10/21/16 20:30 10/22/16 09:00 (Pravachol) 40 mg HS PO 10/21/16 21:00 10/25/16 23:03 Gabapentin 400 mg 400 mg TID PO 10/21/16 21:00 10/25/16 18:33 (Flagyl 500 Mg Inj) 100 ml @ 100 mls/hr Q8H IV 10/22/16 09:00 10/26/16 02:59 (Norvasc) 2.5 mg DAILY PO 10/24/16 16:45 10/25/16 09:35 (Pill Splitter) 1 ea UNSCH PRN OTHER 10/24/16 17:00 (Morphine Inj) 2 mg Q3H PRN IV PUSH 10/24/16 20:15 A/P Assessment and Plan Atypical chest pain Suspect secondary to pleural effusion and possible infection appearing loculated , also r/o malignancy. Chest CT with large left pleural effusion and no PE. Trops negative. - Telemetry monitoring. - Treat underlying pulmonary process. - Echocardiogram pending. Pneumonia with sepsis Chest CT with subsegmental areas of consolidation of the left mid and lower lung. WBC 29 on admission, improving. Tachycardia present. Sepsis resolving with abx. - Continue antibiotics with IV ceftriaxone, azithromycin and Flagyl. - follow pleural fluid, blood and sputum cultures. Pleural effusion, moderate. Chest and abdominal CT reviewed findings discussed with ED physician show lymphadenopathy; will need to rule out a malignant etiology. Repeat CT following thoracentesis: Minimal interval progression of airspace consolidation in the left lower lobe with interval minimal progression of loculated appearing intermediate density left-sided pleural effusion. S/p chest tube. - follow up with pulmonology. - cytology pending. - wean oxygen as tolerated. - echo pending. - continue chest tube for now. Per radiology may be removed today. Anemia MCV WNL. - check iron studies, B12, folate levels and Hemoccult. DVT prophylaxis: Heparin Discharge Planning Awaiting further evaluation Iraj Núñez DO Oct 26, 2016 08:45
[2016-10-26] MEDS: amLODIPine BESYLATE 5 MG TAB PO SCH (08:55)
[2016-10-26] MEDS: GABAPENTIN 400 MG CAP PO SCH ×3 (08:55→17:09)
[2016-10-26] MEDS: SODIUM CHLORIDE 0.9% FLUSH 10 ML FLUSH IV FLUSH SCH ×2 (08:57→21:51)
[2016-10-26] MEDS: DOCUSATE SODIUM 50 MG/SENNA 8.6 MG TAB PO SCH ×2 (09:00→21:00)
[2016-10-26 10:18] LABS: FERRITIN 171 NG/ML (26-388); TRANSFERRIN IRON PROFILE 147 MG/DL (200-360)
[2016-10-26] MEDS: ACETAMINOPHEN/HYDROcodone 325 MG/5 MG TAB PO PRN (15:07)
--- NOTE | 2016-10-26 16:45 | ECHRPT ---
Indication: HEART FAILURE CONCLUSIONS Mildly dilated ascending aorta. Measured at 4.0 cm. Normal LV function Mild mitral valve regurgitation. There is mild tricuspid valve regurgitation. The estimated pulmonary arterial pressure is 37 mmHg. The pulmonary valve is not well visualized. A left sided pleural effusion is present. BP: 146 / 67 HR: 78 Rhythm: Sinus MEASUREMENTS (Male / Female) Normal Values Technical Quality:Good 2D ECHO LV Diastolic Diameter PLAX 4.9 cm 4.2 - 5.9 / 3.9 - 5.3 cm LV Systolic Diameter PLAX 3.7 cm IVS Diastolic Thickness 1.0 cm 0.6 - 1.0 / 0.6 - 0.9 cm LVPW Diastolic Thickness 1.0 cm 0.6 - 1.0 / 0.6 - 0.9 cm LV Relative Wall Thickness 0.4 LVOT Diameter 1.9 cm Ascending Aorta Diameter 4.0 cm M-MODE Aortic Root Diameter MM 3.0 cm LA Systolic Diameter MM 3.0 cm LA Ao Ratio MM 1.0 AV Cusp Separation MM 2.0 cm DOPPLER AV Peak Velocity 141.0 cm/s AV Peak Gradient 8.0 mmHg LVOT Peak Velocity 88.8 cm/s LVOT Peak Gradient 3.2 mmHg AV Area Cont Eq pk 1.8 cm MR Peak Velocity 326.0 cm/s MR Peak Gradient 42.5 mmHg Mitral E Point Velocity 116.0 cm/s Mitral A Point Velocity 93.3 cm/s Mitral E to A Ratio 1.2 LV E' Lateral Velocity 11.2 cm/s Mitral E to LV E' Lateral Ratio 10.4 LV E' Septal Velocity 9.8 cm/s Mitral E to LV E' Septal Ratio 11.8 TR Peak Velocity 261.0 cm/s TR Peak Gradient 27.2 mmHg PV Peak Velocity 107.0 cm/s PV Peak Gradient 4.6 mmHg FINDINGS LEFT VENTRICLE Normal left ventricular size and wall thickness. The left ventricular systolic function is normal wi th an estimated ejection fraction in the range of 60-65%. Left ventricular diastolic function parameters a re normal. RIGHT VENTRICLE Normal right ventricular size and systolic function. LEFT ATRIUM The left atrial size is normal. RIGHT ATRIUM The right atrial size is normal. ATRIAL SEPTUM Normal atrial septal thickness without atrial level shunting by limited color doppler interrogation. AORTA Mildly dilated ascending aorta. Measured at 4.0 cm. MITRAL VALVE Structurally normal mitral valve. Mild thickening of the mitral valve leaflets. Calcification of both mitral valve leaflets. Mild mitral valve regurgitation. AORTIC VALVE Trileaflet aortic valve. No aortic valve stenosis or regurgitation. TRICUSPID VALVE Structurally normal tricuspid valve. There is mild tricuspid valve regurgitation. The estimated pulmonary arterial pressure is 37 mmHg. PULMONARY VALVE The pulmonary valve is not well visualized. VESSELS The inferior vena cava is normal in size. PERICARDIUM A left sided pleural effusion is present. Stephanie Morel MD, FACC (Electronically Signed) Final Date:26 October 2016 16:44
[2016-10-26] MEDS: cefTRIAXone INJ 1,000 MG in SODIUM CHLORIDE 0.9% INJ 100 ML IV SCH (17:08)
[2016-10-26] MEDS: AZITHROMYCIN INJ 500 MG in SODIUM CHLOR 0.9% 250 ML INJ 250 ML IV SCH (17:13)
[2016-10-26] MEDS: PRAVASTATIN SOD 40 MG TAB PO SCH (21:51)
[2016-10-27] VITALS (7 sets, daily range): BP systolic 118–140; BP diastolic 62–71; PULSE 80–94; RESP 16–18; TEMP 98.4–99; O2SAT 93–96
[2016-10-27] MEDS: metroNIDAZOLE 500 MG INJ 100 ML IV SCH ×2 (01:22→08:10)
[2016-10-27 04:42] LABS: BODY FLUID LDH 328 U/L (()); BODY FLUID LDH SOURCE PLEURAL (())
[2016-10-27] MEDS: PANTOPRAZOLE SOD 40 MG DELAYED RELEASE TAB PO SCH (05:52)
[2016-10-27] MEDS: ACETAMINOPHEN/HYDROcodone 325 MG/5 MG TAB PO PRN ×3 (06:51→21:51)
--- NOTE | 2016-10-27 07:13 | RADRPT ---
EXAM DATE/TIME: 10/27/2016 06:04 [facility] COMPARISON: CHEST EXPIRATION ONLY, October 26, 2016, 6:22. CHEST SINGLE AP, October 24, 2016, 20:37. INDICATIONS : Effusion. MEDICAL HISTORY : Gastroesophageal reflux disease. Diabetes mellitus type II. Hypertension. SURGICAL HISTORY : Cholecystectomy. Fusion, lumbar. Shoulder repair, right. Thoracentesis. Hernia repair. ENCOUNTER: Subsequent ACUITY: 2 days PAIN SCORE: 1/10 LOCATION: Bilateral chest FINDINGS: Portable AP expiratory view of the chest demonstrates a normal-sized cardiac silhouette. Left chest t ube again overlies the peripheral left inferior hemithorax. There is a stable small moderate size ple ural-parenchymal opacity on the left. No pneumothorax is visualized. Right lung is clear. CONCLUSION: Stable chest x-ray with persistent left basilar opacity likely representing pleural effusion with ass ociated volume loss and/or consolidation. Andrea Eugene MD on October 27, 2016 at 7:10 Board Certified Radiologist. This report was verified electronically.
[2016-10-27] MEDS: GABAPENTIN 400 MG CAP PO SCH ×3 (08:08→17:19)
[2016-10-27] MEDS: amLODIPine BESYLATE 5 MG TAB PO SCH (08:08)
[2016-10-27] MEDS: SODIUM CHLORIDE 0.9% FLUSH 10 ML FLUSH IV FLUSH SCH ×2 (08:09→21:00)
[2016-10-27] MEDS: DOCUSATE SODIUM 50 MG/SENNA 8.6 MG TAB PO SCH ×2 (08:10→21:00)
[2016-10-27 09:45] LABS: HEMATOCRIT 34.2 % (39.0-51.0); MEAN CELL VOLUME 83.6 FL (80.0-100.0); MEAN CORPUSCULAR HEMOGLOBIN 28.1 PG (27.0-34.0); MEAN CORPUSCULAR HGB CONC 33.6 % (32.0-36.0); PLATELET COUNT 516 TH/MM3 (150-450); RED BLOOD COUNT 4.09 MIL/MM3 (4.50-5.90); RED CELL DISTRIBUTION WIDTH 15.8 % (11.6-17.2); REVIEW FLAG FINAL; WHITE BLOOD COUNT 24.6 TH/MM3 (4.0-11.0)
[2016-10-27 10:16] LABS: BICARBONATE 25.9 MEQ/L (21.0-32.0); MAGNESIUM 2.2 MG/DL (1.5-2.5); POTASSIUM 4.2 MEQ/L (3.5-5.1)
--- NOTE | 2016-10-27 10:17 | HHI.PR ---
Subjective Remarks The patient was wanting answers. He wanted to know when the chest tube would be removed. He wanted to know what the fluid was. He wanted to know the results of the echocardiogram. He said he was feeling well and wanted to go home soon. Discussed with nursing. Objective Vitals Vital Signs Date Time Temp Pulse Resp B/P Pulse Ox O2 Delivery O2 Flow Rate FiO2 10/27/16 08:05 98.4 89 18 134/71 93 10/27/16 05:15 98.4 88 16 118/70 94 10/27/16 00:37 99.0 88 16 134/65 96 10/26/16 21:26 99.4 90 16 120/64 95 10/26/16 20:00 Room Air 10/26/16 20:00 87 10/26/16 16:04 98.8 86 16 119/65 94 10/26/16 16:00 Room Air 10/26/16 12:04 98.3 89 16 121/58 96 10/26/16 12:00 Room Air I/O 10/26/16 10/26/16 10/26/16 10/27/16 10/27/16 10/27/16 07:00 15:00 23:00 07:00 15:00 23:00 Intake Total 260 ml 584 ml 580 ml 0 ml Output Total 592 ml 1210 ml 500 ml 800 ml Balance -332 ml -626 ml 80 ml -800 ml Intake Oral 60 ml 480 ml 480 ml 0 ml IV Total 200 ml 104 ml 100 ml Output Urine Total 550 ml 1200 ml 500 ml 800 ml Chest Tube Drainage Total 42 ml 10 ml 0 ml 0 ml # Bowel Movements 1 0 0 0 Result Diagram: 10/27/16 0823 10/25/16 0116 Imaging Last Impressions Chest X-Ray 10/27/16 0600 Signed Impressions: Service Date/Time: Thursday, October 27, 2016 06:04 - CONCLUSION: Stable chest x-ray with persistent left basilar opacity likely representing pleural effusion with associated volume loss and/or consolidation. Andrea Eugene MD Chest Tube Insertion 10/25/16 1038 Signed Impressions: Service Date/Time: Tuesday, October 25, 2016 11:53 - CONCLUSION: Successful CT-guided 10-Seneg[place]e left chest tube 40 cm Pleur-evac suction. The lung should reexpand completely and the tube should be able to be removed tomorrow. Andrea Ortega MD FACR Thoracentesis Ultrasound 10/22/16 Signed Impressions: Service Date/Time: Saturday, October 22, 2016 14:54 - CONCLUSION: Uncomplicated ultrasound guided thoracentesis. Bart Moraes MD Chest CT 10/22/16 Signed Impressions: Service Date/Time: Saturday, October 22, 2016 16:21 - CONCLUSION: 1. Slight interval progression of airspace consolidation in the left lower lobe with interval minimal progression of loculated appearing intermediate density left-sided pleural effusion. Given relatively low volume thoracentesis earlier today, patient may benefit from chest tube placement and TPA fibrinolysis. Juan Carlos Gibson MD Chest Ultrasound 10/21/16 Signed Impressions: Service Date/Time: October 22:04 - CONCLUSION: Moderate left pleural effusion marked for bedside thoracentesis Andrea Evans MD Abdomen/Pelvis CT 10/21/16 Signed Impressions: Service Date/Time: October 14:16 - CONCLUSION: 1. Left pleural effusion and lower lobe consolidation. 2. Mild dilation of the left ureter without evidence of renal stone or ureteral stone. 3. Several mildly prominent para-aortic lymph nodes measuring up to 11 mm. Jc Suarez MD Objective Remarks GENERAL: Well-developed well-nourished. In no acute distress. SKIN: Warm and dry. No lesions noted. HEENT: Normocephalic. Pupils equal and round. Mucous membranes pink and moist. CARDIOVASCULAR: Regular rate and rhythm. Grade 2 systolic murmur appreciated. RESPIRATORY: No accessory muscle use. Decreased breath sounds and crackles in the left lung base. GASTROINTESTINAL: Abdomen soft, non-tender, nondistended. Bowel sounds x4. MUSCULOSKELETAL: No obvious deformities. No clubbing or cyanosis. No edema. Chest tube in place on the left chest wall. NEUROLOGICAL: Awake and alert. No focal neurological deficits. Moves upper and lower extremities spontaneously. Normal speech. PSYCHIATRIC: Anxious. Procedures Chest tube placement Thoracentesis Medications and IVs Current Medications Medications (Trade) Dose Ordered Sig/Coleen Route Start Time Stop Time Status Last Admin (NS Flush) 2 ml UNSCH PRN IV FLUSH 10/21/16 17:00 (NS Flush) 2 ml BID IV FLUSH 10/21/16 21:00 10/27/16 08:09 (Tylenol) 650 mg Q4H PRN PO 10/21/16 17:00 (Zofran Inj) 4 mg Q6H PRN IVP 10/21/16 17:00 (Restoril) 15 mg HS PRN PO 10/21/16 17:00 (Heparin Inj) 5,000 units Q12H SQ 10/21/16 18:00 Hold 10/22/16 06:40 (Gale-Colace) 1 tab BID PO 10/21/16 21:00 10/23/16 09:11 (Milk Of Magnesia Liq) 30 ml Q12H PRN PO 10/21/16 17:00 (Senokot) 17.2 mg Q12H PRN PO 10/21/16 17:00 (Dulcolax Supp) 10 mg DAILY PRN RECTAL 10/21/16 17:00 Lactulose 30 ml 30 ml DAILY PRN PO 10/21/16 17:00 Ceftriaxone Sodium 1000 mg/ Sodium Chloride 100 ml @ 200 mls/hr Q24H IV 10/22/16 17:00 10/26/16 17:08 (Zithromax Inj/ NS 250 ml Inj) 250 ml @ 250 mls/hr Q24H IV 10/22/16 18:00 10/26/16 17:13 ([place] 5-325 Mg) 1 tab Q4H PRN PO 10/21/16 17:00 10/27/16 06:51 (Morphine Inj) 2 mg Q4H PRN IV PUSH 10/21/16 17:00 (Synthroid) 125 mcg DAILY@06 PRN PO 10/21/16 20:30 (Tears Naturale Opth Soln) 2 drop Q2HR PRN EACH EYE 10/21/16 20:30 10/22/16 09:00 Gabapentin 400 mg 400 mg TID PO 10/21/16 21:00 10/27/16 08:08 (Flagyl 500 Mg Inj) 100 ml @ 100 mls/hr Q8H IV 10/22/16 09:00 10/27/16 08:10 (Norvasc) 2.5 mg DAILY PO 10/24/16 16:45 10/27/16 08:08 (Pill Splitter) 1 ea UNSCH PRN OTHER 10/24/16 17:00 (Morphine Inj) 2 mg Q3H PRN IV PUSH 10/24/16 20:15 (Pravachol) 20 mg HS PO 10/27/16 21:00 UNV A/P Assessment and Plan Atypical chest pain Suspect secondary to pleural effusion and possible infection appearing loculated , also r/o malignancy. Chest CT with large left pleural effusion and no PE. Trops negative. Echo with normal EF, TR MR and TR. - Telemetry monitoring. - Treat underlying pulmonary process. Pneumonia with sepsis Chest CT with subsegmental areas of consolidation of the left mid and lower lung. Leukocytosis is persistent. - Continue antibiotics with IV ceftriaxone, azithromycin and Flagyl. - follow pleural fluid, blood and sputum cultures. - ID consult requested. Loculated left pleural effusion Chest and abdominal CTs show lymphadenopathy; will need to rule out a malignant etiology. Repeat CT following thoracentesis: Minimal interval progression of airspace consolidation in the left lower lobe with interval minimal progression of loculated appearing intermediate density left-sided pleural effusion. S/p chest tube. Echo with normal EF. - follow up with pulmonology. - cytology pending. - wean oxygen as tolerated. - continue chest tube for now. - ID consult requested. Anemia MCV WNL. Studies consistent with anemia of chronic disease. - check Hemoccult. - follow CBC as needed. DVT prophylaxis: Heparin Discharge Planning Awaiting further evaluation Iraj Núñez DO Oct 27, 2016 10:17
[2016-10-27] MEDS ORDERED: ALTEPLASE RECOMBINANT 2 MG VIAL OTHER ONE (14:00)
--- NOTE | 2016-10-27 14:54 | PD.CONS ---
History of Present Illness Service Infectious disease Consult Requested By Dr Tila Núñez Reason for Consult Evaluate patient with worsening leukocytosis Primary Care Physician [facility] Diagnoses: History of Present Illness Patient seen and examined. Records reviewed. Patient is a 71-year-old male, presented to the hospital after he had an abnormal chest x-ray done. Patient apparently has been having left-sided chest pain for about a week. It gets worse when he takes a deep breath. He denies any significant cough or chest congestion. He has not had any nausea or vomiting. Denies any fever or chills or sweats. He went to his primary care physician, and a chest x-ray was done and it showed a large pleural effusion. Patient was instructed to go the hospital for further evaluation and treatment. On presentation his WBC was 29,000. Imaging study showed a large pleural effusion. Patient initially underwent a thoracentesis on the left on October 22, and it showed 1790 WBC, 82% neutrophils. It was negative for malignancy on cytology. Culture was negative. Patient was started on antibiotics for pneumonia with effusion. He has been on Rocephin, Zithromax, and Flagyl. His chest x-ray was only minimally improved after the thoracentesis, and patient underwent placement of a chest tube on the left side on October 25. Patient clinically has improved as far as his left-sided chest pain. He remains afebrile. His WBC count however went up again to 29,000. He is voiding ok. Denies diarrhea Infectious disease consultations were requested to evaluate the patient. Review of Systems Constitutional: COMPLAINS OF: Night Sweats, DENIES: Fever, Weight loss, Chills , Change in appetite Eyes: DENIES: Eye pain Ears, nose, mouth, throat: DENIES: Nasal discharge, Oral lesions, Throat pain, Ear Pain, Sinus Pain Respiratory: DENIES: Cough, Sputum production, Shortness of breath Cardiovascular: COMPLAINS OF: Chest pain, DENIES: Palpitations, Syncope Gastrointestinal: DENIES: Abdominal pain, Diarrhea, Nausea, Vomiting, Difficulty Swallowing Genitourinary: DENIES: Dysuria Musculoskeletal: DENIES: Joint pain, Muscle aches, Joint Swelling Integumentary: DENIES: Rash Neurologic: DENIES: Headache Psychiatric: DENIES: Confusion, Hallucinations Past Family Social History Allergies: Coded Allergies: No Known Allergies (Unverified , 10/21/16) Past Medical History Hyperlipidemia GERD Hypothyroidism Chronic back pain PUD Past Surgical History Shoulder surgery Lower back surgery Antireflux procedure Active Ordered Medications Tylenol Ione Norvasc Zithromax Dulcolax Rocephin Neurontin Lactulose Synthroid MOM Flagyl Morphine Zofran Protonix Pravachol Gale-Colace Senokot Restoril Family History Father at age 50 of a heart attack Mother lived to 92 Brother at 72 of blood cancer Social History Never a smoker Occasional alcohol use Denies any drug use Physical Exam Vital Signs Vital Signs Date Time Temp Pulse Resp B/P Pulse Ox O2 Delivery O2 Flow Rate FiO2 10/27/16 12:03 98.4 80 17 134/62 96 10/27/16 08:20 Room Air 10/27/16 08:05 98.4 89 18 134/71 93 10/27/16 05:15 98.4 88 16 118/70 94 10/27/16 00:37 99.0 88 16 134/65 96 10/26/16 21:26 99.4 90 16 120/64 95 10/26/16 20:00 Room Air 10/26/16 20:00 87 10/26/16 16:04 98.8 86 16 119/65 94 10/26/16 16:00 Room Air Physical Exam GENERAL: Patient is a well-nourished, well-developed CM, awake and alert, not in respiratory distress. SKIN: Warm and dry. No generalized rash, no ecchymoses and no evidence of embolic lesions. HEAD: Atraumatic. Normocephalic. No temporal wasting, or tenderness. EYES: Titanic conjunctiva. No petechia or hemorrhage. Pupils equal, round and reactive to light. Extraocular movements full and intact. No scleral icterus. No injection or drainage. EARS, NOSE AND THROAT: Nose without bleeding or purulent nasal discharge. No sinus tenderness. Mucous membranes pink and moist. No oral lesions noted. No exudate. No oral thrush. He wears dentures NECK: Trachea midline. Supple and not tender, no meningeal signs CARDIOVASCULAR: Regular rate and rhythm. Has systolic murmur hear loudest at the base of the heart. RESPIRATORY: Clear to auscultation on R lung. Decreased breath sound on L side , with decreased vocal fremitus and dullness on percussion. No E to A changes. No rales, wheezing or rhonchi. Small CT L side with serous fluid ABDOMEN: Soft, non-tender, nondistended. Bowel sounds present and normoactive. No guarding. No rebound. No organomegaly. EXTREMITIES: No clubbing, cyanosis, or edema.No joint effusion, has good ROM. No calf tenderness. Well perfused and warm. NEUROLOGICAL: Awake and alert. Cranial nerves grossly intact. Motor grossly within normal limits. PSYCHIATRIC: Normal affect, calm and cooperative. LINE: No evidence of infection Laboratory Laboratory Tests Test 10/27/16 08:23 White Blood Count 24.6 Red Blood Count 4.09 Hemoglobin 11.5 Hematocrit 34.2 Mean Corpuscular Volume 83.6 Mean Corpuscular Hemoglobin 28.1 Mean Corpuscular Hemoglobin 33.6 Concent Red Cell Distribution Width 15.8 Platelet Count 516 Mean Platelet Volume 8.6 Sodium Level 130 Potassium Level 4.2 Chloride Level 93 Carbon Dioxide Level 25.9 Anion Gap 11 Blood Urea Nitrogen 13 Creatinine 0.81 Estimat Glomerular Filtration 94 Rate Random Glucose 106 Calcium Level 8.9 Magnesium Level 2.2 Date/Time Procedure Status Source Growth 10/26/16 14:45 Gram Stain - Final Resulted Sputum Expectorated Sputum 10/26/16 14:45 Sputum Culture - Preliminary Resulted Sputum Expectorated Sputum HEAVY GROWTH NORMAL RESPIRATORY ANDIE... Result Diagram: 10/27/16 0823 10/27/16 0823 Imaging RADIOLOGY STUDIES/FILMS REVIEWED Chest X-Ray 10/27/16 0600 Signed Impressions: Service Date/Time: Thursday, October 27, 2016 06:04 - CONCLUSION: Stable chest x-ray with persistent left basilar opacity likely representing pleural effusion with associated volume loss and/or consolidation. Andrea Eugene MD Chest Tube Insertion 10/25/16 1038 Signed Impressions: Service Date/Time: Tuesday, October 25, 2016 11:53 - CONCLUSION: Successful CT-guided 10-[place] left chest tube 40 cm Pleur-evac suction. The lung should reexpand completely and the tube should be able to be removed tomorrow. Andrea Ortega MD FACR Thoracentesis Ultrasound 10/22/16 0000 Signed Impressions: Service Date/Time: Saturday, October 22, 2016 14:54 - CONCLUSION: Uncomplicated ultrasound guided thoracentesis. Bart Moraes MD Chest CT 10/22/16 0000 Signed Impressions: Service Date/Time: Saturday, October 22, 2016 16:21 - CONCLUSION: 1. Slight interval progression of airspace consolidation in the left lower lobe with interval minimal progression of loculated appearing intermediate density left-sided pleural effusion. Given relatively low volume thoracentesis earlier today, patient may benefit from chest tube placement and TPA fibrinolysis. Juan Carlos Gibson MD Chest Ultrasound 10/21/16 0000 Signed Impressions: Service Date/Time: , October 21, 2016 22:04 - CONCLUSION: Moderate left pleural effusion marked for bedside thoracentesis Andrea Evans MD Abdomen/Pelvis CT 10/21/16 0000 Signed Impressions: Service Date/Time: October 14:16 - CONCLUSION: 1. Left pleural effusion and lower lobe consolidation. 2. Mild dilation of the left ureter without evidence of renal stone or ureteral stone. 3. Several mildly prominent para-aortic lymph nodes measuring up to 11 mm. Jc Suarez MD Assessment and Plan Assessment and Plan IMPRESSION Leukocytosis, worse again, etiology? - clinically he feels better - temps ok - no new complaint - only new procedure was placement of CT 10/25 Pleural effusion, likely parapneumonic, likely loculated - not being drained well by tube that he has now RECOMMENDATION Repeat CT chest Follow WBC Change some Abx to po - will not change since he is clinically stable Check UA and C/S Monitor progress I will make further recommendation once results of new work-up available I will follow along with you Thank you for this consultation Discussed Condition With Explained plan to the patient Deanna Betancourt MD Oct 27, 2016 14:54
[2016-10-27] MEDS: cefTRIAXone INJ 1,000 MG in SODIUM CHLORIDE 0.9% INJ 100 ML IV SCH (17:19)
[2016-10-27] MEDS: AZITHROMYCIN 250 MG TAB PO SCH (17:26)
--- NOTE | 2016-10-27 21:17 | RADRPT ---
EXAM DATE/TIME: 10/27/2016 20:53 [place] COMPARISON: CT THORAX W/O CONTRAST, October 22, 2016, 16:21. INDICATIONS : Left side chest pain. Evaluate for effusion. RADIATION DOSE: 5.17 CTDIvol (mGy) MEDICAL HISTORY : Diabetes mellitus type 2. Hypertension. Cardiovascular disease SURGICAL HISTORY : Left chest tube placement. ENCOUNTER: Subsequent ACUITY: 2 days PAIN SCALE: 7/10 LOCATION: Left chest TECHNIQUE: Volumetric scanning of the chest was performed. Using automated exposure control and adjustment of t he mA and/or kV according to patient size, radiation dose was kept as low as reasonably achievable to obtain optimal diagnostic quality images. FINDINGS: Since the prior CT, a small caliber chest tube has been placed, formed in the pleural space laterally of the left lung base. The left pleural effusion is modestly smaller in the interim, primarily the f ree flowing component at the base. The loculated component posterolaterally of the left mid to upper hemithorax is slightly smaller. There is persistent consolidation of the left lung base and left-side d volume loss. Tiny pleural effusion on the right, unchanged. No acute abnormality seen in the mediastinum. CONCLUSION: 1. Small to moderate left pleural effusion with loculated and free flowing components is modestly sma ller after chest tube placement. Left base consolidation and left-sided volume loss again noted. 2. Tiny right pleural effusion not changed. Andrea Carreno MD on October 27, 2016 at 21:10 Board Certified Radiologist. This report was verified electronically.
[2016-10-27] MEDS: metroNIDAZOLE 500 MG TAB PO SCH (21:50)
[2016-10-27] MEDS: PRAVASTATIN SOD 20 MG TAB PO SCH (21:51)
[2016-10-28] VITALS (9 sets, daily range): BP systolic 117–131; BP diastolic 57–84; PULSE 81–95; RESP 16–20; TEMP 98–98.6; O2SAT 94–96
[2016-10-28] MEDS: PANTOPRAZOLE SOD 40 MG DELAYED RELEASE TAB PO SCH (05:29)
[2016-10-28] MEDS: metroNIDAZOLE 500 MG TAB PO SCH ×3 (05:29→20:45)
[2016-10-28 07:17] LABS: HEMATOCRIT 32.2 % (39.0-51.0); MEAN CORPUSCULAR HEMOGLOBIN 27.8 PG (27.0-34.0); MEAN CORPUSCULAR HGB CONC 33.4 % (32.0-36.0); PLATELET COUNT 482 TH/MM3 (150-450); RED BLOOD COUNT 3.87 MIL/MM3 (4.50-5.90); RED CELL DISTRIBUTION WIDTH 15.9 % (11.6-17.2); REVIEW FLAG FINAL; WHITE BLOOD COUNT 22.7 TH/MM3 (4.0-11.0)
[2016-10-28] MEDS: DOCUSATE SODIUM 50 MG/SENNA 8.6 MG TAB PO SCH ×2 (08:36→20:45)
[2016-10-28] MEDS: SODIUM CHLORIDE 0.9% FLUSH 10 ML FLUSH IV FLUSH SCH ×2 (08:37→20:45)
[2016-10-28] MEDS: GABAPENTIN 400 MG CAP PO SCH ×3 (08:37→17:01)
[2016-10-28] MEDS: amLODIPine BESYLATE 5 MG TAB PO SCH (08:37)
--- NOTE | 2016-10-28 12:21 | HHI.PR ---
Subjective Remarks The patient was complaining of pain on urination and a bloody discoloration to the urine. He hasn't had that before. Family at the bedside and their questions were answered. Discussed with nursing. Objective Vitals Vital Signs Date Time Temp Pulse Resp B/P Pulse Ox O2 Delivery O2 Flow Rate FiO2 10/28/16 08:00 98.5 84 20 131/64 96 10/28/16 07:56 Nasal Cannula 2.00 10/28/16 07:56 81 10/28/16 05:03 98.6 83 16 117/62 96 10/28/16 04:10 92 10/28/16 01:20 98.3 86 16 118/57 96 10/27/16 23:22 18 10/27/16 21:50 Room Air 10/27/16 20:10 98.9 94 16 140/68 93 10/27/16 16:11 98.4 93 18 123/64 96 10/27/16 16:00 Room Air I/O 10/27/16 10/27/16 10/27/16 10/28/16 10/28/16 10/28/16 07:00 15:00 23:00 07:00 15:00 23:00 Intake Total 0 ml 705 ml 480 ml 242 ml Output Total 800 ml 675 ml 475 ml 500 ml Balance -800 ml 30 ml 5 ml -258 ml Intake Oral 0 ml 600 ml 480 ml 240 ml IV Total 105 ml 2 ml Output Urine Total 800 ml 675 ml 475 ml 500 ml Chest Tube Drainage Total 0 ml # Bowel Movements 0 1 0 1 Result Diagram: 10/28/16 0658 10/27/16 0823 Imaging Last Impressions Chest X-Ray 10/27/16 0600 Signed Impressions: Service Date/Time: Thursday, October 27, 2016 06:04 - CONCLUSION: Stable chest x-ray with persistent left basilar opacity likely representing pleural effusion with associated volume loss and/or consolidation. Andrea Eugene MD Chest CT 10/27/16 0000 Signed Impressions: Service Date/Time: Thursday, October 27, 2016 20:53 - CONCLUSION: 1. Small to moderate left pleural effusion with loculated and free flowing components is modestly smaller after chest tube placement. Left base consolidation and left-sided volume loss again noted. 2. Tiny right pleural effusion not changed. Andrea Carreno MD Chest Tube Insertion 10/25/16 1038 Signed Impressions: Service Date/Time: Tuesday, October 25, 2016 11:53 - CONCLUSION: Successful CT-guided 10-[place] left chest tube 40 cm Pleur-evac suction. The lung should reexpand completely and the tube should be able to be removed tomorrow. Andrea Ortega MD FACR Thoracentesis Ultrasound 10/22/16 0000 Signed Impressions: Service Date/Time: Saturday, October 22, 2016 14:54 - CONCLUSION: Uncomplicated ultrasound guided thoracentesis. Bart Moraes MD Chest Ultrasound 10/21/16 0000 Signed Impressions: Service Date/Time: October 22:04 - CONCLUSION: Moderate left pleural effusion marked for bedside thoracentesis Andrea Evans MD Abdomen/Pelvis CT 10/21/16 0000 Signed Impressions: Service Date/Time: October 14:16 - CONCLUSION: 1. Left pleural effusion and lower lobe consolidation. 2. Mild dilation of the left ureter without evidence of renal stone or ureteral stone. 3. Several mildly prominent para-aortic lymph nodes measuring up to 11 mm. Jc Suarez MD Objective Remarks GENERAL: Well-developed well-nourished. In no acute distress. SKIN: Warm and dry. No lesions noted. HEENT: Normocephalic. Pupils equal and round. Mucous membranes pink and moist. CARDIOVASCULAR: Regular rate and rhythm. Grade 2 systolic murmur appreciated. RESPIRATORY: No accessory muscle use. Decreased breath sounds and crackles in the left lung base. GASTROINTESTINAL: Abdomen soft, non-tender, nondistended. Bowel sounds x4. MUSCULOSKELETAL: No obvious deformities. No clubbing or cyanosis. No edema. Chest tube in place on the left chest wall. NEUROLOGICAL: Awake and alert. No focal neurological deficits. Moves upper and lower extremities spontaneously. Normal speech. PSYCHIATRIC: Mood and affect appropriate. Procedures Chest tube placement Thoracentesis Medications and IVs Current Medications Medications (Trade) Dose Ordered Sig/Coleen Route Start Time Stop Time Status Last Admin (NS Flush) 2 ml UNSCH PRN IV FLUSH 10/21/16 17:00 (NS Flush) 2 ml BID IV FLUSH 10/21/16 21:00 10/28/16 08:37 (Tylenol) 650 mg Q4H PRN PO 10/21/16 17:00 (Zofran Inj) 4 mg Q6H PRN IVP 10/21/16 17:00 (Restoril) 15 mg HS PRN PO 10/21/16 17:00 (Heparin Inj) 5,000 units Q12H SQ 10/21/16 18:00 Hold 10/22/16 06:40 (Gale-Colace) 1 tab BID PO 10/21/16 21:00 10/28/16 08:36 (Milk Of Magnesia Liq) 30 ml Q12H PRN PO 10/21/16 17:00 (Senokot) 17.2 mg Q12H PRN PO 10/21/16 17:00 (Dulcolax Supp) 10 mg DAILY PRN RECTAL 10/21/16 17:00 Lactulose 30 ml 30 ml DAILY PRN PO 10/21/16 17:00 (Rocephin Inj/NS Inj) 100 ml @ 200 mls/hr Q24H IV 10/22/16 17:00 10/27/16 17:19 ([place] 5-325 Mg) 1 tab Q4H PRN PO 10/21/16 17:00 10/27/16 21:51 (Synthroid) 125 mcg DAILY@06 PRN PO 10/21/16 20:30 (Tears Naturale Opth Soln) 2 drop Q2HR PRN EACH EYE 10/21/16 20:30 10/22/16 09:00 (Neurontin) 400 mg TID PO 10/21/16 21:00 10/28/16 08:37 (Norvasc) 2.5 mg DAILY PO 10/24/16 16:45 10/28/16 08:37 (Pill Splitter) 1 ea UNSCH PRN OTHER 10/24/16 17:00 (Morphine Inj) 2 mg Q3H PRN IV PUSH 10/24/16 20:15 (Pravachol) 20 mg HS PO 10/27/16 21:00 10/27/16 21:51 (Zithromax) 500 mg DAILY@18 PO 10/27/16 18:00 10/27/16 17:26 (Flagyl) 500 mg Q8HR PO 10/27/16 22:00 10/28/16 05:29 A/P Assessment and Plan Atypical chest pain Suspect secondary to pleural effusion and possible infection appearing loculated , also r/o malignancy. Chest CT with large left pleural effusion and no PE. Trops negative. Echo with normal EF, TR MR and TR. - Telemetry monitoring. - Treat underlying pulmonary process. Pneumonia with sepsis Chest CT with subsegmental areas of consolidation of the left mid and lower lung. Leukocytosis is persistent. Repeat CT scan showed persistent loculated fluid and consolidation on the left. Infectious disease consult appreciated. - Continue antibiotics with IV ceftriaxone, PO azithromycin and Flagyl per ID. - follow pleural fluid, blood and sputum cultures. Loculated left pleural effusion Chest and abdominal CTs show lymphadenopathy; will need to rule out a malignant etiology. Repeat CT following thoracentesis: Minimal interval progression of airspace consolidation in the left lower lobe with interval minimal progression of loculated appearing intermediate density left-sided pleural effusion. S/p chest tube. Echo with normal EF. - follow up with pulmonology and infectious disease. - cytology pending. Initial set negative for malignant cells. - wean oxygen as tolerated. - continue chest tube for now. Anemia/ Hematuria MCV WNL. Studies consistent with anemia of chronic disease. Hemoccult negative. Patient now with hematuria. - UA pending. - follow CBC as needed. DVT prophylaxis: Heparin Discharge Planning Awaiting further evaluation Iraj Núñez DO Oct 28, 2016 12:21
[2016-10-28 12:24] LABS: BLOOD, URINE MOD (NEG); COMMENT (UR) CULT NOT INDICATED; CULTURE IF INDICATED CULT NOT INDICATED; GLUCOSE,URINE NEG (NEG); KETONE, URINE NEG (NEG); MUCUS URINE FEW /lpf (OCC); NITRITE,URINE NEG (NEG); PH, URINE 5.5 (5.0-8.5); URINE COLOR YELLOW (YELLW/STRAW)
--- NOTE | 2016-10-28 12:30 | HHI.IDPN ---
Subjective Subjective Remarks Notes reviewed No fever C/O terminal dysuria and hematuria just now NO previous problem with hematuria or any problem Repeat CT with smaller loculated effusion Not much coming out from CT WBC slightly lower Antibiotics Zithromax po Flagyl po Rocephin Lines PIV Past Medical History Hyperlipidemia GERD Hypothyroidism Chronic back pain PUD Past Surgical History Shoulder surgery Lower back surgery Antireflux procedure Allergies: Coded Allergies: No Known Allergies (Unverified , 10/21/16) Objective . Vital Signs Date Time Temp Pulse Resp B/P Pulse Ox O2 Delivery O2 Flow Rate FiO2 10/28/16 08:00 98.5 84 20 131/64 96 10/28/16 07:56 Nasal Cannula 2.00 10/28/16 07:56 81 10/28/16 05:03 98.6 83 16 117/62 96 10/28/16 04:10 92 10/28/16 01:20 98.3 86 16 118/57 96 10/27/16 23:22 18 10/27/16 21:50 Room Air 10/27/16 20:10 98.9 94 16 140/68 93 10/27/16 16:11 98.4 93 18 123/64 96 10/27/16 16:00 Room Air 10/27/16 10/27/16 10/28/16 15:00 23:00 07:00 Intake Total 705 ml 480 ml 242 ml Output Total 675 ml 475 ml 500 ml Balance 30 ml 5 ml -258 ml Intake Oral 600 ml 480 ml 240 ml IV Total 105 ml 2 ml Output Urine Total 675 ml 475 ml 500 ml # Bowel Movements 1 0 1 . Laboratory Tests Test 10/27/16 10/28/16 08:23 06:58 White Blood Count 24.6 TH/MM3 22.7 TH/MM3 Red Blood Count 4.09 MIL/MM3 3.87 MIL/MM3 Hemoglobin 11.5 GM/DL 10.8 GM/DL Hematocrit 34.2 % 32.2 % Mean Corpuscular Volume 83.6 FL 83.0 FL Mean Corpuscular Hemoglobin 28.1 PG 27.8 PG Mean Corpuscular Hemoglobin 33.6 % 33.4 % Concent Red Cell Distribution Width 15.8 % 15.9 % Platelet Count 516 TH/MM3 482 TH/MM3 Mean Platelet Volume 8.6 FL 7.8 FL Laboratory Tests Test 10/27/16 08:23 Sodium Level 130 MEQ/L Potassium Level 4.2 MEQ/L Chloride Level 93 MEQ/L Carbon Dioxide Level 25.9 MEQ/L Anion Gap 11 MEQ/L Blood Urea Nitrogen 13 MG/DL Creatinine 0.81 MG/DL Estimat Glomerular Filtration 94 ML/MIN Rate Random Glucose 106 MG/DL Calcium Level 8.9 MG/DL Magnesium Level 2.2 MG/DL Microbiology Date/Time Procedure Status Source Growth 10/26/16 14:45 Gram Stain - Final Complete Sputum Expectorated Sputum 10/26/16 14:45 Sputum Culture - Final Complete Sputum Expectorated Sputum HEAVY GROWTH NORMAL RESPIRATORY ANDIE 10/28/16 10:00 Stool Occult Blood (SERVANDO) - Final Complete Stool Stool HEMOCCULT NEGATIVE Imaging Last Impressions Chest X-Ray 10/27/16 0600 Signed Impressions: Service Date/Time: Thursday, October 27, 2016 06:04 - CONCLUSION: Stable chest x-ray with persistent left basilar opacity likely representing pleural effusion with associated volume loss and/or consolidation. Andrea Eugene MD Chest CT 10/27/16 0000 Signed Impressions: Service Date/Time: Thursday, October 27, 2016 20:53 - CONCLUSION: 1. Small to moderate left pleural effusion with loculated and free flowing components is modestly smaller after chest tube placement. Left base consolidation and left-sided volume loss again noted. 2. Tiny right pleural effusion not changed. Andrea Carreno MD Chest Tube Insertion 10/25/16 1038 Signed Impressions: Service Date/Time: Tuesday, October 25, 2016 11:53 - CONCLUSION: Successful CT-guided 10-[place] left chest tube 40 cm Pleur-evac suction. The lung should reexpand completely and the tube should be able to be removed tomorrow. Andrea Ortega MD FACR Thoracentesis Ultrasound 10/22/16 0000 Signed Impressions: Service Date/Time: Saturday, October 22, 2016 14:54 - CONCLUSION: Uncomplicated ultrasound guided thoracentesis. Bart Moraes MD Chest Ultrasound 10/21/16 0000 Signed Impressions: Service Date/Time: October 22:04 - CONCLUSION: Moderate left pleural effusion marked for bedside thoracentesis Andrea Evans MD Abdomen/Pelvis CT 10/21/16 0000 Signed Impressions: Service Date/Time: October 14:16 - CONCLUSION: 1. Left pleural effusion and lower lobe consolidation. 2. Mild dilation of the left ureter without evidence of renal stone or ureteral stone. 3. Several mildly prominent para-aortic lymph nodes measuring up to 11 mm. Jc Suarez MD Physical Exam GENERAL: awake and alert, not in respiratory distress. SKIN: Warm and dry. No generalized rash, no ecchymoses and no evidence of embolic lesions. HEAD: Atraumatic. Normocephalic. No temporal wasting, or tenderness. EYES: [place] conjunctiva. No petechia or hemorrhage. No scleral icterus. No injection or drainage. EARS, NOSE AND THROAT: Nose without bleeding or purulent nasal discharge. No sinus tenderness. Mucous membranes pink and moist. He wears dentures NECK: Trachea midline. Supple and not tender, no meningeal signs CARDIOVASCULAR: Regular rate and rhythm. Has systolic murmur hear loudest at the base of the heart. RESPIRATORY: Clear to auscultation on R lung. Decreased breath sound on L side , with decreased vocal fremitus and dullness on percussion. No E to A changes. No rales, wheezing or rhonchi. Small CT L side with serous fluid ABDOMEN: Soft, non-tender, nondistended. Bowel sounds present and normoactive. No guarding. No rebound. No organomegaly. EXTREMITIES: No clubbing, cyanosis, or edema.No joint effusion, has good ROM. No calf tenderness. Well perfused and warm. NEUROLOGICAL: Awake and alert. Cranial nerves grossly intact. Motor grossly within normal limits. PSYCHIATRIC: Normal affect, calm and cooperative. LINE: No evidence of infection Assessment & Plan Remarks IMPRESSION Leukocytosis, etiology? slightly better - clinically he feels better - temps ok - no new complaint - only new procedure was placement of CT 10/25 Pleural effusion, likely parapneumonic, likely loculated - not being drained well by tube that he has now Dysuria, hematuria RECOMMENDATION Follow WBC Change Rocephin and Zithromax to Levaquin if WBC continues to improve Follow new C/S Monitor progress Repeat UA D/W Deanna Black MD Oct 28, 2016 12:30
[2016-10-28] MEDS: ACETAMINOPHEN/HYDROcodone 325 MG/5 MG TAB PO PRN ×2 (12:54→21:11)
[2016-10-28 14:27] LABS: BLOOD, URINE MOD (NEG); GLUCOSE,URINE NEG (NEG); KETONE, URINE NEG (NEG); NITRITE,URINE NEG (NEG); PH, URINE 5.5 (5.0-8.5); URINE COLOR YELLOW (YELLW/STRAW)
[2016-10-28] MEDS: cefTRIAXone INJ 1,000 MG in SODIUM CHLORIDE 0.9% INJ 100 ML IV SCH (16:59)
[2016-10-28] MEDS: AZITHROMYCIN 250 MG TAB PO SCH (17:01)
[2016-10-28] MEDS: PRAVASTATIN SOD 20 MG TAB PO SCH (20:45)
[2016-10-29] VITALS (7 sets, daily range): BP systolic 117–150; BP diastolic 60–68; PULSE 78–96; RESP 16–19; TEMP 98.2–99; O2SAT 92–97
[2016-10-29] MEDS: metroNIDAZOLE 500 MG TAB PO SCH ×3 (05:36→21:36)
[2016-10-29] MEDS: PANTOPRAZOLE SOD 40 MG DELAYED RELEASE TAB PO SCH (05:36)
[2016-10-29] MEDS: DOCUSATE SODIUM 50 MG/SENNA 8.6 MG TAB PO SCH ×2 (08:15→21:36)
[2016-10-29] MEDS: amLODIPine BESYLATE 5 MG TAB PO SCH (08:15)
[2016-10-29] MEDS: GABAPENTIN 400 MG CAP PO SCH ×3 (08:15→17:23)
[2016-10-29] MEDS: ACETAMINOPHEN/HYDROcodone 325 MG/5 MG TAB PO PRN (08:16)
[2016-10-29] MEDS: SODIUM CHLORIDE 0.9% FLUSH 10 ML FLUSH IV FLUSH SCH ×2 (08:18→21:36)
[2016-10-29 08:38] LABS: HEMATOCRIT 31.3 % (39.0-51.0); MEAN CELL VOLUME 83.3 FL (80.0-100.0); MEAN CORPUSCULAR HEMOGLOBIN 28.8 PG (27.0-34.0); MEAN CORPUSCULAR HGB CONC 34.6 % (32.0-36.0); PLATELET COUNT 491 TH/MM3 (150-450); RED BLOOD COUNT 3.75 MIL/MM3 (4.50-5.90); RED CELL DISTRIBUTION WIDTH 15.6 % (11.6-17.2); REVIEW FLAG FINAL
[2016-10-29 09:02] LABS: BICARBONATE 28.3 MEQ/L (21.0-32.0); MAGNESIUM 1.9 MG/DL (1.5-2.5); POTASSIUM 4.1 MEQ/L (3.5-5.1)
--- NOTE | 2016-10-29 11:49 | RADRPT ---
EXAM DATE/TIME: 10/29/2016 11:01 [facility] COMPARISON: CHEST SINGLE AP, October 27, 2016, 6:04. INDICATIONS : Evaluate for pleural effusion. MEDICAL HISTORY : Hypertension. SURGICAL HISTORY : None. ENCOUNTER: Initial ACUITY: 1 day PAIN SCORE: 0/10 LOCATION: Bilateral chest FINDINGS: Small bore tube is in place on the left. Persistent consolidation changes remain. The right lung is clear. The heart and pulmonary vascularity are normal. CONCLUSION: Stable chest. Andrea Ortega MD FACR on October 29, 2016 at 11:45 Board Certified Radiologist. This report was verified electronically.
--- NOTE | 2016-10-29 15:14 | HHI.PR ---
Subjective Remarks The patient was sitting up in bed. Family at the bedside. The questions were answered. No acute concerns at this time. Objective Vitals Vital Signs Date Time Temp Pulse Resp B/P Pulse Ox O2 Delivery O2 Flow Rate FiO2 10/29/16 12:21 99.0 84 19 129/60 95 10/29/16 08:56 Nasal Cannula 2.00 10/29/16 08:13 98.9 84 19 139/68 96 10/29/16 07:46 78 10/29/16 05:00 98.2 83 18 117/61 97 10/29/16 04:00 Nasal Cannula 2.00 10/29/16 00:00 Nasal Cannula 2.00 10/28/16 20:06 93 10/28/16 20:00 98.5 95 20 124/84 94 10/28/16 20:00 Nasal Cannula 2.00 10/28/16 16:00 98.0 82 20 129/64 96 10/28/16 16:00 Room Air I/O 10/28/16 10/28/16 10/28/16 10/29/16 10/29/16 10/29/16 06:59 14:59 22:59 06:59 14:59 22:59 Intake Total 242 ml 960 ml 1200 ml Output Total 660 ml 570 ml 800 ml 1000 ml Balance -418 ml 390 ml 400 ml -1000 ml Intake Oral 240 ml 960 ml 1200 ml IV Total 2 ml Output Urine Total 500 ml 550 ml 800 ml 1000 ml Chest Tube Drainage Total 160 ml 20 ml # Bowel Movements 1 1 3 0 Result Diagram: 10/29/16 0643 10/29/16 0643 Imaging Last Impressions Chest X-Ray 10/29/16 0000 Signed Impressions: Service Date/Time: Saturday, October 29, 2016 11:01 - CONCLUSION: Stable chest. Andrea Ortega MD FACR Chest CT 10/27/16 0000 Signed Impressions: Service Date/Time: Thursday, October 27, 2016 20:53 - CONCLUSION: 1. Small to moderate left pleural effusion with loculated and free flowing components is modestly smaller after chest tube placement. Left base consolidation and left-sided volume loss again noted. 2. Tiny right pleural effusion not changed. Andrea Carreno MD Chest Tube Insertion 10/25/16 1038 Signed Impressions: Service Date/Time: Tuesday, October 25, 2016 11:53 - CONCLUSION: Successful CT-guided 10-[place] left chest tube 40 cm Pleur-evac suction. The lung should reexpand completely and the tube should be able to be removed tomorrow. Andrea Ortega MD FACR Thoracentesis Ultrasound 10/22/16 0000 Signed Impressions: Service Date/Time: Saturday, October 22, 2016 14:54 - CONCLUSION: Uncomplicated ultrasound guided thoracentesis. Bart Moraes MD Chest Ultrasound 10/21/16 0000 Signed Impressions: Service Date/Time: October 22:04 - CONCLUSION: Moderate left pleural effusion marked for bedside thoracentesis Andrea Evans MD Abdomen/Pelvis CT 10/21/16 0000 Signed Impressions: Service Date/Time: October 14:16 - CONCLUSION: 1. Left pleural effusion and lower lobe consolidation. 2. Mild dilation of the left ureter without evidence of renal stone or ureteral stone. 3. Several mildly prominent para-aortic lymph nodes measuring up to 11 mm. Jc Suarez MD Objective Remarks GENERAL: Well-developed well-nourished. In no acute distress. SKIN: Warm and dry. No lesions noted. HEENT: Normocephalic. Pupils equal and round. Mucous membranes pink and moist. CARDIOVASCULAR: Regular rate and rhythm. Grade 2 systolic murmur appreciated. RESPIRATORY: No accessory muscle use. Decreased breath sounds and crackles in the left lung base. GASTROINTESTINAL: Abdomen soft, non-tender, nondistended. Bowel sounds x4. MUSCULOSKELETAL: No obvious deformities. No clubbing or cyanosis. No edema. Chest tube in place on the left chest wall. NEUROLOGICAL: Awake and alert. No focal neurological deficits. Moves upper and lower extremities spontaneously. Normal speech. PSYCHIATRIC: Mood and affect appropriate. Procedures Chest tube placement Thoracentesis Medications and IVs Current Medications Medications (Trade) Dose Ordered Sig/Coleen Route Start Time Stop Time Status Last Admin (NS Flush) 2 ml UNSCH PRN IV FLUSH 10/21/16 17:00 (NS Flush) 2 ml BID IV FLUSH 10/21/16 21:00 10/29/16 08:18 (Tylenol) 650 mg Q4H PRN PO 10/21/16 17:00 (Zofran Inj) 4 mg Q6H PRN IVP 10/21/16 17:00 (Restoril) 15 mg HS PRN PO 10/21/16 17:00 (Heparin Inj) 5,000 units Q12H SQ 10/21/16 18:00 Hold 10/22/16 06:40 (Gale-Colace) 1 tab BID PO 10/21/16 21:00 10/29/16 08:15 (Milk Of Magnesia Liq) 30 ml Q12H PRN PO 10/21/16 17:00 (Senokot) 17.2 mg Q12H PRN PO 10/21/16 17:00 (Dulcolax Supp) 10 mg DAILY PRN RECTAL 10/21/16 17:00 Lactulose 30 ml 30 ml DAILY PRN PO 10/21/16 17:00 (Rocephin Inj/NS Inj) 100 ml @ 200 mls/hr Q24H IV 10/22/16 17:00 10/28/16 16:59 ([place] 5-325 Mg) 1 tab Q4H PRN PO 10/21/16 17:00 10/29/16 08:16 (Synthroid) 125 mcg DAILY@06 PRN PO 10/21/16 20:30 (Tears Naturale Opth Soln) 2 drop Q2HR PRN EACH EYE 10/21/16 20:30 10/22/16 09:00 (Neurontin) 400 mg TID PO 10/21/16 21:00 10/29/16 13:49 (Norvasc) 2.5 mg DAILY PO 10/24/16 16:45 10/29/16 08:15 (Pill Splitter) 1 ea UNSCH PRN OTHER 10/24/16 17:00 (Morphine Inj) 2 mg Q3H PRN IV PUSH 10/24/16 20:15 (Pravachol) 20 mg HS PO 10/27/16 21:00 10/28/16 20:45 (Zithromax) 500 mg DAILY@18 PO 10/27/16 18:00 10/28/16 17:01 (Flagyl) 500 mg Q8HR PO 10/27/16 22:00 10/29/16 13:49 A/P Assessment and Plan Atypical chest pain Suspect secondary to pleural effusion and possible infection appearing loculated , also r/o malignancy. Chest CT with large left pleural effusion and no PE. Trops negative. Echo with normal EF, TR MR and TR. - Telemetry monitoring. - Treat underlying pulmonary process. Pneumonia with sepsis Chest CT with subsegmental areas of consolidation of the left mid and lower lung. Leukocytosis is persistent. Repeat CT scan showed persistent loculated fluid and consolidation on the left. Infectious disease consult appreciated. - Continue antibiotics with IV ceftriaxone, PO azithromycin and Flagyl per ID. Likely will switch to by mouth Levaquin upon discharge per ID. - follow pleural fluid, blood and sputum cultures. Loculated left pleural effusion Chest and abdominal CTs show lymphadenopathy; will need to rule out a malignant etiology. Repeat CT following thoracentesis: Minimal interval progression of airspace consolidation in the left lower lobe with interval minimal progression of loculated appearing intermediate density left-sided pleural effusion. S/p chest tube. Echo with normal EF. Cytology negative for malignant cells 2. - follow up with pulmonology. Dc chest tube. Chest x-ray in the morning. - wean oxygen as tolerated. Anemia/ Hematuria MCV WNL. Studies consistent with anemia of chronic disease. Hemoccult negative. Patient now with hematuria. Hemoglobin stable. UA with occult blood but no evidence of infection. - follow CBC. - Outpatient follow-up with urology. DVT prophylaxis: Heparin Discharge Planning Anticipate discharge home in the morning. Iraj Núñez DO Oct 29, 2016 15:14
--- NOTE | 2016-10-29 15:47 | HHI.IDPN ---
Subjective Subjective Remarks Notes reviewed No fever complaints better UA with some RBC Chest tube removed WBC same 22K Antibiotics Zithromax po Flagyl po Rocephin Lines PIV Past Medical History Hyperlipidemia GERD Hypothyroidism Chronic back pain PUD Past Surgical History Shoulder surgery Lower back surgery Antireflux procedure Allergies: Coded Allergies: No Known Allergies (Unverified , 10/21/16) Objective . Vital Signs Date Time Temp Pulse Resp B/P Pulse Ox O2 Delivery O2 Flow Rate FiO2 10/29/16 12:21 99.0 84 19 129/60 95 10/29/16 08:56 Nasal Cannula 2.00 10/29/16 08:13 98.9 84 19 139/68 96 10/29/16 07:46 78 10/29/16 05:00 98.2 83 18 117/61 97 10/29/16 04:00 Nasal Cannula 2.00 10/29/16 00:00 Nasal Cannula 2.00 10/28/16 20:06 93 10/28/16 20:00 98.5 95 20 124/84 94 10/28/16 20:00 Nasal Cannula 2.00 10/28/16 16:00 98.0 82 20 129/64 96 10/28/16 16:00 Room Air 10/28/16 10/28/16 10/29/16 15:00 23:00 07:00 Intake Total 960 ml 1200 ml Output Total 570 ml 800 ml 1000 ml Balance 390 ml 400 ml -1000 ml Intake Oral 960 ml 1200 ml Output Urine Total 550 ml 800 ml 1000 ml Chest Tube Drainage Total 20 ml # Bowel Movements 1 3 0 . Laboratory Tests Test 10/28/16 10/29/16 06:58 06:43 White Blood Count 22.7 TH/MM3 22.0 TH/MM3 Red Blood Count 3.87 MIL/MM3 3.75 MIL/MM3 Hemoglobin 10.8 GM/DL 10.8 GM/DL Hematocrit 32.2 % 31.3 % Mean Corpuscular Volume 83.0 FL 83.3 FL Mean Corpuscular Hemoglobin 27.8 PG 28.8 PG Mean Corpuscular Hemoglobin 33.4 % 34.6 % Concent Red Cell Distribution Width 15.9 % 15.6 % Platelet Count 482 TH/MM3 491 TH/MM3 Mean Platelet Volume 7.8 FL 8.3 FL Laboratory Tests Test 10/29/16 06:43 Sodium Level 131 MEQ/L Potassium Level 4.1 MEQ/L Chloride Level 95 MEQ/L Carbon Dioxide Level 28.3 MEQ/L Anion Gap 8 MEQ/L Blood Urea Nitrogen 14 MG/DL Creatinine 0.83 MG/DL Estimat Glomerular Filtration 91 ML/MIN Rate Random Glucose 95 MG/DL Calcium Level 8.3 MG/DL Magnesium Level 1.9 MG/DL Microbiology Date/Time Procedure Status Source Growth 10/28/16 10:00 Stool Occult Blood (SERVANDO) - Final Complete Stool Stool HEMOCCULT NEGATIVE Imaging Last Impressions Chest X-Ray 10/27/16 0600 Signed Impressions: Service Date/Time: Thursday, October 27, 2016 06:04 - CONCLUSION: Stable chest x-ray with persistent left basilar opacity likely representing pleural effusion with associated volume loss and/or consolidation. Andrea Eugene MD Chest CT 10/27/16 0000 Signed Impressions: Service Date/Time: Thursday, October 27, 2016 20:53 - CONCLUSION: 1. Small to moderate left pleural effusion with loculated and free flowing components is modestly smaller after chest tube placement. Left base consolidation and left-sided volume loss again noted. 2. Tiny right pleural effusion not changed. Andrea Carreno MD Chest Tube Insertion 10/25/16 1038 Signed Impressions: Service Date/Time: Tuesday, October 25, 2016 11:53 - CONCLUSION: Successful CT-guided 10-[place] left chest tube 40 cm Pleur-evac suction. The lung should reexpand completely and the tube should be able to be removed tomorrow. Andrea Ortega MD FACR Thoracentesis Ultrasound 10/22/16 0000 Signed Impressions: Service Date/Time: Saturday, October 22, 2016 14:54 - CONCLUSION: Uncomplicated ultrasound guided thoracentesis. Bart Moraes MD Chest Ultrasound 10/21/16 0000 Signed Impressions: Service Date/Time: October 22:04 - CONCLUSION: Moderate left pleural effusion marked for bedside thoracentesis Andrea Evans MD Abdomen/Pelvis CT 10/21/16 0000 Signed Impressions: Service Date/Time: October 14:16 - CONCLUSION: 1. Left pleural effusion and lower lobe consolidation. 2. Mild dilation of the left ureter without evidence of renal stone or ureteral stone. 3. Several mildly prominent para-aortic lymph nodes measuring up to 11 mm. Jc Suarez MD Physical Exam GENERAL: awake and alert, NAD. SKIN: Warm and dry. No generalized rash HEENT: [place] conjunctiva. No petechia or hemorrhage. No scleral icterus. No injection or drainage. Nose without bleeding or purulent nasal discharge. Mucous membranes pink and moist. He wears dentures NECK: Trachea midline. Supple and not tender, no meningeal signs CARDIOVASCULAR: Regular rate and rhythm. Has systolic murmur hear loudest at the base of the heart. RESPIRATORY: Clear to auscultation on R lung. Decreased breath sound on L side , with decreased vocal fremitus and dullness on percussion. No E to A changes. No rales, wheezing or rhonchi. ABDOMEN: Soft, non-tender, nondistended. Bowel sounds present and normoactive. No guarding. No rebound. No organomegaly. EXTREMITIES: No clubbing, cyanosis, or edema.No joint effusion, has good ROM. No calf tenderness. Well perfused and warm. NEUROLOGICAL: Non-focal PSYCHIATRIC: Normal affect, calm and cooperative. LINE: No evidence of infection Assessment & Plan Remarks IMPRESSION Leukocytosis, etiology? slightly better - clinically he feels better - temps ok - no new complaint - only new procedure was placement of CT 10/25 Pleural effusion, likely parapneumonic, likely loculated - not being drained well by tube that he has now Dysuria, hematuria RECOMMENDATION Stop Rocephin and Zithromax Levaquin and Flagyl till November 03 Clinically stable from ID standpoint Follow CBC as outpatient OK for D/C I will sign off Please call if with any ID issue or question D/W Deanna Santos MD Oct 29, 2016 15:47
[2016-10-29] MEDS ORDERED: LEVOFLOXACIN 750 MG TAB PO SCH (17:00)
--- NOTE | 2016-10-29 17:42 | RADRPT ---
EXAM DATE/TIME: 10/29/2016 14:00 [facility] COMPARISON: No previous studies available for comparison. INDICATIONS : Dr Moon request the removal of chest tube. Possible discharge scheduled for tomorrow. DEVICE(S): 1.) Vaseline occlusive dressing PROCEDURE : Chest tube removal. Using aseptic technique the previously placed chest tube was easily removed in one piece and Vaseline gauze and sterile dressing was applied. Chest radiograph is to be obtained. CONCLUSION: Uncomplicated chest tube removal. Juan Carlos Gibson MD on October 29, 2016 at 17:40 Board Certified Radiologist. This report was verified electronically.
[2016-10-29] MEDS: PRAVASTATIN SOD 20 MG TAB PO SCH (21:36)
[2016-10-30 00:15] VITALS: BP 120/61; PULSE 91; RESP 16; TEMP 99.4; O2SAT 93
[2016-10-30] MEDS: ACETAMINOPHEN/HYDROcodone 325 MG/5 MG TAB PO PRN (00:31)
[2016-10-30 05:23] VITALS: BP 117/65; PULSE 83; RESP 16; TEMP 98.5; O2SAT 95
[2016-10-30] MEDS: PANTOPRAZOLE SOD 40 MG DELAYED RELEASE TAB PO SCH (05:27)
[2016-10-30] MEDS: metroNIDAZOLE 500 MG TAB PO SCH ×2 (05:27→11:39)
--- NOTE | 2016-10-30 05:46 | RADRPT ---
EXAM DATE/TIME: 10/30/2016 05:17 [facility] COMPARISON: CHEST SINGLE AP, October 29, 2016, 11:01. INDICATIONS : Evaluate for pneumothorax. MEDICAL HISTORY : Hypertension. SURGICAL HISTORY : None. ENCOUNTER: Subsequent ACUITY: 1 week PAIN SCORE: 7/10 LOCATION: Bilateral chest FINDINGS: There is a moderate-sized left effusion. Previous small caliber left chest tube has been removed. No pneumothorax. Right lung is clear. CONCLUSION: 1. Small to moderate left effusion. Removal of left chest tube. Right lung is clear. Latrell Lew MD on October 30, 2016 at 5:42 Board Certified Radiologist. This report was verified electronically.
[2016-10-30 07:57] LABS: HEMATOCRIT 30.7 % (39.0-51.0); MEAN CELL VOLUME 83.9 FL (80.0-100.0); MEAN CORPUSCULAR HEMOGLOBIN 27.8 PG (27.0-34.0); MEAN CORPUSCULAR HGB CONC 33.2 % (32.0-36.0); PLATELET COUNT 478 TH/MM3 (150-450); RED BLOOD COUNT 3.66 MIL/MM3 (4.50-5.90); RED CELL DISTRIBUTION WIDTH 15.5 % (11.6-17.2); WHITE BLOOD COUNT 22.4 TH/MM3 (4.0-11.0)
[2016-10-30 08:00] VITALS: BP 138/75; PULSE 80; PULSE 86; RESP 18; TEMP 98.2; O2SAT 96
[2016-10-30 08:06] LABS: HEMO FLAGS AUTO DIFF
[2016-10-30] MEDS ORDERED: HYDR-3516 PO (08:57)
[2016-10-30] MEDS ORDERED: LEVA750T9 PO ×2 (08:57→11:11)
[2016-10-30] MEDS ORDERED: METR-1 PO ×2 (08:57→11:11)
[2016-10-30] MEDS ORDERED: AMLO5 PO (08:57)
--- NOTE | 2016-10-30 08:59 | HHI.DCPOC ---
Discharge Care Plan Diagnosis: (1) Pneumonia (2) Pleural effusion (3) Anemia (4) Hematuria Goals to Promote Your Health * To prevent worsening of your condition and complications * To maintain your health at the optimal level Directions to Meet Your Goals Take your medications as prescribed Follow your dietary instruction Follow activity as directed Keep your appointments as scheduled Take your immunizations and boosters as scheduled If your symptoms worsen call your PCP, if no PCP go to Urgent Care Center or Emergency Room Smoking is Dangerous to Your Health. Avoid second hand smoke Call the 24-hour hour crisis hotline for domestic abuse at Iraj Núñez DO Oct 30, 2016 08:59
[2016-10-30] MEDS: SODIUM CHLORIDE 0.9% FLUSH 10 ML FLUSH IV FLUSH SCH (09:00)
[2016-10-30] MEDS: amLODIPine BESYLATE 5 MG TAB PO SCH (09:00)
[2016-10-30] MEDS: GABAPENTIN 400 MG CAP PO SCH ×2 (09:00→11:39)
[2016-10-30] MEDS: DOCUSATE SODIUM 50 MG/SENNA 8.6 MG TAB PO SCH (09:00)
--- NOTE | 2016-10-30 09:12 | HHI.DS ---
Discharge Summary Admission Date Oct 21, 2016 at 16:58 Discharge Date: Oct 30, 2016 Admitting Diagnosis pneumonia, effusion (1) Pneumonia ICD Code: J18.9 Diagnosis: Principal (2) Pleural effusion ICD Code: J90 Diagnosis: Principal (3) Anemia ICD Code: D64.9 (4) Hematuria ICD Code: R31.9 Procedures Chest tube placement Thoracentesis Brief History - From Admission Written by Darryn Mandujano, acting as scribe for Dr. Schmitt on 10/21/16 at 17:15. This note was transcribed by ej QUINTERO. I, Dr. Tashia Schmitt personally performed the history, physical exam, and medical decision making; and confirmed the accuracy of the information in the transcribed note. Authenticated by Dr. Tashia Schmitt on 10/21/16 at 17:15. 71-year-old male with a past medical history of HLD, hypothyroidism, GERD, chronic back pain who was sent by the [facility] for chest pain. The patient states that he's been having intermittent left-sided chest pain for the past week. He states the pain is worse when he takes a deep breath or lies flat. The pain has been alleviated by sitting and nitroglycerin. He denies any radiation of the pain. He states the pain is intermediate and lasts for about 20 or 30 minutes at a time. His chest has been tender to touch. He does report orthopnea, but denies any shortness of breath. He reports occasional palpitations. He states that he always has night sweats. He states that normally he has a clear yellow cough in the morning, denies any blood in it. He denies any past history of heart disease, tobacco use, or cancer. He denies any nausea, vomiting, constipation, diarrhea, weakness, weight loss or appetite loss. CBC/BMP: 10/30/16 0636 10/29/16 0643 Significant Findings Laboratory Tests Test 10/28/16 10/28/16 10/28/16 10/29/16 06:58 11:40 13:30 06:43 White Blood Count 22.7 TH/MM3 22.0 TH/MM3 (4.0-11.0) (4.0-11.0) Red Blood Count 3.87 MIL/MM3 3.75 MIL/MM3 (4.50-5.90) (4.50-5.90) Hemoglobin 10.8 GM/DL 10.8 GM/DL (13.0-17.0) (13.0-17.0) Hematocrit 32.2 % 31.3 % (39.0-51.0) (39.0-51.0) Platelet Count 482 TH/MM3 491 TH/MM3 (150-450) (150-450) Urine Occult Blood MOD (NEG) MOD (NEG) Urine RBC 60 /hpf (0-3) 10 /hpf (0-3) Urine Mucus FEW /lpf (OCC) Sodium Level 131 MEQ/L (136-145) Chloride Level 95 MEQ/L (98-107) Calcium Level 8.3 MG/DL (8.5-10.1) Test 10/30/16 06:36 White Blood Count 22.4 TH/MM3 (4.0-11.0) Red Blood Count 3.66 MIL/MM3 (4.50-5.90) Hemoglobin 10.2 GM/DL (13.0-17.0) Hematocrit 30.7 % (39.0-51.0) Platelet Count 478 TH/MM3 (150-450) Imaging Last Impressions Chest X-Ray 10/30/16 0600 Signed Impressions: Service Date/Time: Sunday, October 30, 2016 05:17 - CONCLUSION: 1. Small to moderate left effusion. Removal of left chest tube. Right lung is clear. Latrell Lew MD Tunnelled Chest Tube Removal 10/29/16 1400 Signed Impressions: Service Date/Time: Saturday, October 29, 2016 14:00 - CONCLUSION: Uncomplicated chest tube removal. Juan Carlos Gibson MD Chest CT 10/27/16 0000 Signed Impressions: Service Date/Time: Thursday, October 27, 2016 20:53 - CONCLUSION: 1. Small to moderate left pleural effusion with loculated and free flowing components is modestly smaller after chest tube placement. Left base consolidation and left-sided volume loss again noted. 2. Tiny right pleural effusion not changed. Andrea Carreno MD Chest Tube Insertion 10/25/16 1038 Signed Impressions: Service Date/Time: Tuesday, October 25, 2016 11:53 - CONCLUSION: Successful CT-guided 10-Slovenian left chest tube 40 cm Pleur-evac suction. The lung should reexpand completely and the tube should be able to be removed tomorrow. Andrea Ortega MD FACR Thoracentesis Ultrasound 10/22/16 Signed Impressions: Service Date/Time: Saturday, October 22, 2016 14:54 - CONCLUSION: Uncomplicated ultrasound guided thoracentesis. Bart Moraes MD Chest Ultrasound 10/21/16 0000 Signed Impressions: Service Date/Time: October 22:04 - CONCLUSION: Moderate left pleural effusion marked for bedside thoracentesis Andrea Evans MD Abdomen/Pelvis CT 10/21/16 Signed Impressions: Service Date/Time: October 14:16 - CONCLUSION: 1. Left pleural effusion and lower lobe consolidation. 2. Mild dilation of the left ureter without evidence of renal stone or ureteral stone. 3. Several mildly prominent para-aortic lymph nodes measuring up to 11 mm. Jc Suarez MD PE at Discharge GENERAL: Well-developed well-nourished. In no acute distress. SKIN: Warm and dry. No lesions noted. HEENT: Normocephalic. Pupils equal and round. Mucous membranes pink and moist. CARDIOVASCULAR: Regular rate and rhythm. Grade 2 systolic murmur appreciated. RESPIRATORY: No accessory muscle use. Minimal crackles in the left lung base. GASTROINTESTINAL: Abdomen soft, non-tender, nondistended. Bowel sounds x4. MUSCULOSKELETAL: No obvious deformities. No clubbing or cyanosis. No edema. Chest tube in place on the left chest wall. NEUROLOGICAL: Awake and alert. No focal neurological deficits. Moves upper and lower extremities spontaneously. Normal speech. PSYCHIATRIC: Mood and affect appropriate. Pt update on day of discharge The patient was resting comfortably in bed. He said he had a little soreness at the site of the chest tube. He was breathing comfortably with ambulation. He reports no further blood in his urine. He is anxious to go home. Hospital Course Pneumonia with sepsis/ Atypical chest pain Chest CT with subsegmental areas of consolidation of the left mid and lower lung. Leukocytosis was persistent and he had atypical chest pain. Trops negative , Echo with normal EF, TR MR and TR. His chest pain improved. Repeat CT scan showed persistent loculated fluid and consolidation on the left. Infectious disease was consulted. He was continued on antibiotics with IV ceftriaxone, PO azithromycin and Flagyl per ID. Cultures remained negative. He was switched to by mouth Levaquin and Flagyl to complete a course per ID. Loculated left pleural effusion Chest and abdominal CTs showed a pleural effusion. Repeat CT following thoracentesis: Minimal interval progression of airspace consolidation in the left lower lobe with interval minimal progression of loculated appearing intermediate density left-sided pleural effusion. Pulmonology was consulted. S/ p chest tube placement by IR. Echo with normal EF. Cytology negative for malignant cells 2. Chest tube was discontinued 10/29. 10/30 chest x-ray stable. He will follow up with pulmonology as an outpt. Anemia/ Hematuria MCV WNL. Hemoccult negative. Patient with one episode of hematuria. Hemoglobin was stable. UA with occult blood but no evidence of infection. He will have outpatient follow-up with urology. Pt Condition on Discharge: Good Discharge Disposition: Discharge Home Discharge Time: > 30 minutes Discharge Instructions DIET: Follow Instructions for: As Tolerated, No Restrictions Activities you can perform: Weight Bearing as Jeanne Follow up Referrals: PCP Follow-up - 1 Week Pulmonology - 1 Week with Ismael Ferreira MD Urology - 2 Weeks New Medications: Levofloxacin (Levaquin) 750 Mg Tablet 750 MG PO DAILY Infection #2 TAB Levofloxacin (Levaquin) 750 Mg Tablet 750 MG PO DAILY Infection #3 TAB Metronidazole (Flagyl) 500 Mg Tab 500 MG PO TID Infection #6 Ref 0 TAB Metronidazole (Flagyl) 500 Mg Tab 500 MG PO TID Infection #9 Ref 0 TAB Hydrocodone-Acetaminophen (Hydrocodone-Acetaminophen) 5-325 mg Tab 1 TAB PO Q6HR PRN pain #14 TAB Continued Medications: Gabapentin (Gabapentin) 400 Mg Cap 400 CAP PO TID #30 Ref 0 CAP Ketorolac Opth Drops (Ketorolac Opth Drops) 0.5% Drops 1 DROP EACH EYE QID Pain/Inflammation #5 Ref 0 ML Levothyroxine (Levothyroxine) 125 Mcg Tab 125 MCG PO DAILY PRN Thyroid #30 Ref 0 TAB Menthol-Methyl Salicylate (Danna (Muscle Rub 10-15 %) 1 Cre Cre BID Miconazole Nitrate (Topical) (Miconazole Nitrate) 2 % Cre BID Omeprazole (Omeprazole) 20 Mg Tab 20 MG PO DAILY #30 Ref 0 TAB Polyvinyl Alcohol Opth Drops (Artificial Tears Opth Drops) 1.4% Soln 1-2 DROP EACH EYE Q2HR PRN DRY EYE Ref 0 BOTTLE Simvastatin (Simvastatin) 20 Mg Tab 20 MG PO HS Cholesterol Management #30 Ref 0 TAB Discontinued Medications: Omeprazole (Omeprazole) 40 Mg Cap 40 MG PO AC BREAKFAST #30 Ref 0 CAP Iraj Núñez DO Oct 30, 2016 09:12
[2016-10-30 10:00] LABS: BANDS 3 % (0-6); BASOPHILS 1 % (0-2); METAMYELOCYTES 1 % (0-1); MYELOCYTES 1 % (0-0); NEUTROPHIL # MANUAL DIFF 12.8 TH/MM3 (1.8-7.7); PLATELET ESTIMATE SMEAR HIGH (NORMAL); PLATELET MORPHOLOGY NORMAL (NORMAL); POLYS (SEG NEUTROPHILS) 52 % (16-70); SCAN/DIFF FINAL DIFF MANUAL; WBC DIFF SAMPLE 100
== END 2016-10-30 11:45 | disposition home or self-care (01) | DRG 871 ==
LOC: NEPC 12:22 → NEDA 16:58 → N04B 18:17
PROVIDERS: ADMIT Hospitalist; ATTEND Hospitalist
PROC: 0W9B3ZX Drainage of Left Pleural Cavity, Percutaneous Approach, Diagnostic (ICD-10-PCS; principal; 2016-10-22)
PROC: 0W9B30Z Drainage of Left Pleural Cavity with Drainage Device, Percutaneous Approach (ICD-10-PCS; 2016-10-25)
PROC: 0WPBX0Z Removal of Drainage Device from Left Pleural Cavity, External Approach (ICD-10-PCS; 2016-10-29)
DX: A41.9 Sepsis, unspecified organism (principal); J18.9 Pneumonia, unspecified organism; J90 Pleural effusion, not elsewhere classified; E11.9 Type 2 diabetes mellitus without complications; D63.8 Anemia in other chronic diseases classified elsewhere; R31.9 Hematuria, unspecified; E03.9 Hypothyroidism, unspecified; E78.5 Hyperlipidemia, unspecified; K44.9 Diaphragmatic hernia without obstruction or gangrene; Z87.11 Personal history of peptic ulcer disease; K21.9 Gastro-esophageal reflux disease without esophagitis; G89.29 Other chronic pain; M54.9 Dorsalgia, unspecified; R07.89 Other chest pain; M46.97 Unspecified inflammatory spondylopathy, lumbosacral region; F17.200 Nicotine dependence, unspecified, uncomplicated; R30.0 Dysuria
CPT/HCPCS: 32555; 32557; 71010; 71020; 71250; 71260; 74177; 76604; 80048; 80053; 81001; 82150; 82272; 82465; 82550; 82607; 82728; 82746; 82945; 83540; 83550; 83615; 83690; 83735; 84157; 84484; 85007; 85025; 85027; 85379; 85610; 85730; 86140; 87040; 87070; 87205; 88112; 88305; 89051; 93005; 93306; 94150; 99152; 99153; C1729; J0456; J0696; J1644; J2250; J2997; J3010; J3475; J7040; J7050; Q9967